=== PATIENT | female | born 1980 | race Two or more races ===

== ENCOUNTER 2020-09-21 22:10 | Emergency (ER) | payer MEDICAID, SELFPAY ==
[2020-09-21 22:13] VITALS: BP 147/94; PULSE 77; RESP 18; TEMP 36.8; O2SAT 100; BMI 39.4
--- NOTE | 2020-09-22 01:56 | PC.NURSE ---
TRAPEZE ARTIST at bedside for primary eval.
--- NOTE | 2020-09-22 01:57 | ED_ITS ---
HPI - Wound/Laceration General Chief Complaint: Skin/Abscess/Foreign Body Stated Complaint: bite Source: patient Mode of arrival: ambulatory Limitations: no limitations History of Present Illness HPI narrative: 40-year-old female presents within insect bite to the left foot. Onset (ago): hour(s) (Within the hour of arrival) Place: home Patient tetanus UTD: No Associated symptoms: pain Related Data Allergies Allergy/AdvReac Type Severity Reaction Status Date / Time No Known Allergies Allergy Unknown UNKNOWN Verified 09/21/20 22:13 [NO KNOWN ALLERGIES] Review of Systems Review of Systems: Constitutional: No Fever, No Chills ENT/Mouth: No Ear Pain, No Hoarseness, No sore throat Eyes: No Eye Pain, No Swelling, No Redness, No Foreign Body Cardiovascular: No Chest Pain, No SOB Respiratory: No Cough, No Dyspnea Gastrointestinal: No Nausea, No Vomiting, No Diarrhea, No abdominal Pain Genitourinary: No Dysuria, No Hematuria Musculoskeletal: positive left foot pain, No Myalgias, No Joint Swelling Skin: No Skin lacerations, No rash Neuro: No Weakness, No Numbness, No Paresthesias, No Loss of Consciousness, No Dizziness, No Headache Psych: No Anxiety/Panic, No Depression Heme/Lymph: no easy bruising, no Lymphadenopathy Endocrine: No Polyuria, No Polydipsia Yes all other systems are reviewed and are negative [facility] Past Medical History Attestation statement: The following information was validated with the patient. Source: old records reviewed Medical History (Updated 09/22/20 @ 01:59 by Alondra Frias NP) Hypertension Social History Social History Advance Directives: No Advance Directives Information Provided: No Patient : No Physical Exam Vital Signs: Vital Signs: Last Vital Signs Temp 98.2 F 09/21/20 22:13 Pulse 75 09/22/20 01:58 Resp 20 09/22/20 01:58 BP 172/84 H 09/22/20 01:58 Pulse Ox 100 09/21/20 22:13 Body Mass Index 39.4 Appearance: Alert. Oriented X3. No acute distress. Eyes: Pupils equal, round and reactive to light. ENT: Pharynx normal. Neck: Normal inspection. Neck supple. CVS: Normal heart rate and rhythm. Pulses normal. Respiratory: No respiratory distress. Breath sounds normal. Abdomen: Soft and nontender. Skin: Skin warm and dry. Normal skin color. Normal skin turgor. Extremities: No lower extremity edema. Neuro: No motor deficit. No sensory deficit. Course Course Course Narrative: 40-year-old female states to have been stung by a bee to the left medial aspect of the foot. Unable to sting site, patient did place a Home remedy paste on it try to remove the stinger which was successful. do not appreciate any swelling or erythema. Will treat with Toradol, update Tdap vaccine, and give Benadryl. Patient would like to be discharged to home at this time. MDM - Wound/Laceration MDM Narrative Medical decision making narrative: Bee sting Discharge Plan Discharge Clinical Impression: Bee sting reaction Qualifiers: Encounter type: initial encounter Injury intent: accidental or unintentional Qualified Code(s): T63.441A - Toxic effect of venom of bees, accidental (unintentional), initial encounter Patient Disposition: Home, Self-Care Instructions: Insect Bite or Sting (ED) Additional Instructions: You evaluated for injuries sustained from a bee sting. We treated you with Benadryl, Toradol, and updated her Tdap vaccine today. Thank you for choosing this emergency department for evaluation. Please follow-up with primary care physician as needed. Return to the emergency department for any new, concerning, or worsening symptoms. Interventions: ED Discharge Assessment Last Done: 09/22/20 02:13 Discharge Date/Time: 09/22/20 02:15
[2020-09-22 01:58] VITALS: BP 172/84; PULSE 75; RESP 20
[2020-09-22] MEDS: Ketorolac Tromethamine 60 MG/2 ML VIAL IM (02:11)
[2020-09-22] MEDS: diphenhydrAMINE HCL 25 MG TABLET 50 MG PO (02:11)
[2020-09-22] MEDS: Diphth,Pertus(ACell),Tet Adult 0.5 ML SYRINGE IM (02:12)
--- NOTE | 2020-09-22 02:12 | PC.NURSE ---
Medicated per JUN. VSS. Pt aware of plan to DC home.
== END 2020-09-22 02:15 | disposition home or self-care (01) ==
PROVIDERS: Emergency Provider Emergency Medicine
DX: T63.441A Toxic effect of venom of bees, accidental (unintentional), initial encounter (principal); Y92.9 Unspecified place or not applicable; I10 Essential (primary) hypertension
CPT/HCPCS: 90471; 90715; 96372; 99284; J1885; Q0163

== ENCOUNTER 2020-09-27 12:58 | Outpatient (REF) | payer MEDICAID, SELFPAY ==
--- NOTE | ~2020-09-27 | XR_ITS ---
EXAMINATION: XR BILATERAL KNEE CLINICAL INFORMATION: Pain. COMPARISON: None. TECHNIQUE: 4 views each knee. FINDINGS: Right Knee: There is loss of medial and patellofemoral compartment joint space. There are no loose bodies or bony erosive changes. No abnormal joint effusion. No visible acute fracture or dislocation. Left Knee: There is minimal loss of medial and patellofemoral compartment joint space. No bony erosive changes. There are no loose bodies. No abnormal joint effusion. The soft tissues are normal. XR/XR knee RT 4V IMPRESSION: Mild early degenerative changes medial and patellofemoral compartment joint spaces. No visible acute fracture or dislocation seen.
--- NOTE | ~2020-09-27 | XR_ITS ---
EXAMINATION: XR BILATERAL KNEE CLINICAL INFORMATION: Pain. COMPARISON: None. TECHNIQUE: 4 views each knee. FINDINGS: Right Knee: There is loss of medial and patellofemoral compartment joint space. There are no loose bodies or bony erosive changes. No abnormal joint effusion. No visible acute fracture or dislocation. Left Knee: There is minimal loss of medial and patellofemoral compartment joint space. No bony erosive changes. There are no loose bodies. No abnormal joint effusion. The soft tissues are normal. XR/XR knee LT 4V IMPRESSION: Mild early degenerative changes medial and patellofemoral compartment joint spaces. No visible acute fracture or dislocation seen.
== END 2020-09-27 12:59 | disposition home or self-care (01) ==
LOC: HO.XRAY 12:58
PROVIDERS: PCP General Practice; Visit Provider General Practice
DX: M25.561 Pain in right knee (principal); M25.562 Pain in left knee
CPT/HCPCS: 73564

== ENCOUNTER 2021-01-28 13:22 | Outpatient (RCR) | payer MEDICAID, SELFPAY | END 2021-02-18 12:05 | disposition home or self-care (01) | LOC: HO.PT 13:22 | PROVIDERS: PCP General Practice; Visit Provider General Practice | DX: M17.0 Bilateral primary osteoarthritis of knee (principal) | CPT/HCPCS: 97162 ==

== ENCOUNTER 2022-10-16 10:11 | Outpatient (REF) | payer MEDICAID, SELFPAY | END 2022-10-16 10:12 | disposition home or self-care (01) | LOC: HO.HHCL 10:11 | PROVIDERS: Visit Provider General Practice | DX: N39.3 Stress incontinence (female) (male) (principal); E88.81 Metabolic syndrome and other insulin resistance | CPT/HCPCS: 36415; 80053; 83036 ==

== ENCOUNTER 2023-08-20 11:06 | Outpatient (REF) | payer MEDICAID, SELFPAY ==
[2023-08-20 13:17] LABS: MANUAL DIFF FLAG NO
[2023-08-20 13:54] LABS: Basophils Percent Auto 0.5 % (0-2); Eosinophils Absolute Auto 0.2 X10*3/uL (0.0-0.4); Eosinophils Percent Auto 2.1 % (0-4); Hemoglobin 12.6 g/dl (12.0-16.0); Imm Gran Abs Auto 0.04 X10*3/uL (0.00-0.03); Imm Gran Pct Auto 0.5 % (0.0-0.4); Lymphocytes Absolute Auto 2.3 X10*3/uL (1.2-4.9); Lymphocytes Percent Auto 28.4 % (20-40); Mean Corpuscular HGB Conc 34.1 g/dl (31.0-35.0); Mean Corpuscular Hemoglobin 29.7 pg (27.0-33.0); Mean Corpuscular Volume 87.3 fL (80.0-98.0); Mean Platelet Volume 10.7 fL (9.4-12.3); Monocytes Absolute Auto 0.5 X10*3/uL (0.1-1.2); Monocytes Percent Auto 5.9 % (2-11); Neutrophils Absolute Auto 5.1 x10*3/uL (2.0-8.3); Neutrophils Percent Auto 62.6 % (45-73); Platelet Count 217 X10*3/uL (160-400); Red Blood Count 4.24 X10*6/uL (4.20-5.50); Red Cell Distribution Width 12.4 % (11.0-16.0); White Blood Count 8.1 X10*3/uL (4.8-10.8)
[2023-08-20 14:12] LABS: Alanine Aminotransferase 26 U/L (0-31); Albumin Level 3.8 g/dL (3.5-5.0); Alkaline Phosphatase 60 U/L (39-117); Anion Gap 14 (12-20); Aspartate Amino Transferase 17 U/L (5-31); Bilirubin Total 0.4 mg/dL (0.0-1.0); Blood Urea Nitrogen 13 mg/dL (9-16); Calcium 8.7 mg/dL (8.4-10.2); Carbon Dioxide 26 mmol/L (22-29); Chloride 105 mmol/L (96-108); Cholesterol 177 mg/dL (<200); Estimated Glomerular Filt Rate > 60; Glucose Random 87 mg/dL (60-115); HDL Cholesterol 47 mg/dL (>40); LDL Cholesterol Calculated 109 mg/dL (<100); Potassium 3.3 mmol/L (3.3-5.1); Sodium 142 mmol/L (135-145); Total Protein 6.5 g/dL (6.5-8.0); Triglycerides 106 mg/dL (<150)
[2023-08-20 14:31] LABS: Folate 8.3 ng/mL (> or = 4.0); Vitamin B12 560 pg/mL (200-900)
[2023-08-20 14:32] LABS: TSH reflex Free T4 1.76 uIU/mL (0.32-4.0)
== END 2023-08-20 11:07 | disposition home or self-care (01) ==
LOC: HO.HHCLNP 11:06
PROVIDERS: Visit Provider General Practice
DX: I10 Essential (primary) hypertension (principal)
CPT/HCPCS: 36415; 80053; 80061; 82607; 82746; 84443; 85025

== ENCOUNTER 2023-10-10 09:24 | Outpatient (AMB) | payer MEDICAID, SELFPAY ==
--- OUTSIDE RECORDS SUMMARY | 2023-10-10 09:25 | XMS_ITS | Continuity of Care Document ---
Author Organization [facility] Address [address] [place] [address]- Care Team Providers Care Supervisor Long Goods Name Role Phone Not on Staff, PCP Primary Care Physician Unavail able Encounter [facility] NBR [id number] Date(s): 03/24/21 - 03/25/[address] [address]- Discharge Disposition: A-D/C Walkout Attending Physician: Lencho Bynum DO Admitting Physician: Lencho Bynum DO Referring Physician: Not on Staff, Referring MD Allergies, Adverse Reactions, Alerts Substance Reaction Severity Status NKA Active Medications Aveeno Anti-Itch 3%-1% topical cream 1 application, Topically, 2 times a day, PRN for itching, # 30 Gm, 0 Refills, Maintenance, 10/05/2012:29:00 EDT, Cream Start Date: 10/06/19 Status: Ordered losartan 25 mg oral tablet 25 mg, 1, tablet, By Mouth, Daily, # 30 tablet, Refills 0, Maintenance, 10/06/19 13:29:00 EDT Start Date: 10/06/19 Status: Ordered Mirena 52 mg intrauterine device 1 each = 52 mg, Once, 0 Refills, Maintenance, 10/06/19 13:29:00 EDT Start Date: 10/06/19 Status: Ordered oxybutynin 10 mg/24 hr oral tablet, extended release 1 tablet = 10 mg, By Mouth, Daily, # 30 tablet, 11 Refills, Maintenance, 05/03/20 16:04:00 EST, ER Tablet, [facility], 156.1, cm, 01/30/20 9:49:00 EDT, Height, 106.3, kg, :49:00 EDT, Dry Weight Start Date: 05/03/20 Status: Ordered Prevident Topically, Daily at bedtime, 0 Refills, Maintenance, 10/06/19 13:30:00 EDT Start Date: 10/06/19 Status: Ordered SUMAtriptan 50 mg oral tablet 1 tablet = 50 mg, By Mouth, Daily, PRN for migraine headache, may repeat dose after 2 hours up to amaximum of 2, # 9 tablet, 0 Refills, Maintenance, 10/06/19 13:30:00 EDT, Tablet Start Date: 10/06/19 Status: Ordered Tylenol 325 mg oral capsule 2 capsule = 650 mg, By Mouth, Every 4 hours, PRN as needed for fever, # 20 capsule, 0 Refills, Maintenance, 10/06/19 13:31:00 EDT, Capsule Start Date: 10/06/19 Status: Ordered Vitamin D3 By Mouth, Daily, 0 Refills, Maintenance, 10/06/19 13:31:00 EDT Start Date: 10/06/19 Status: Ordered Problem List Condition Effective Dates Status Health Status Inform ant Essential hypertension(Confirmed) Active Insulin resistance(Confirmed) Active Migraine(Confirmed) Active Pain of right breast(Confirmed) Active Incontinence of urine(Confirmed) Active Vitamin D deficiency(Confirmed) Active Vital Signs Most recent to oldest [Reference Range]: 1 Height 158 cm (03/24/21 9:03 PM) Weight 110.3 kg (03/24/21 9:03 PM) Oxygen Saturation [94-100 %] 98 % (03/24/21 9:03 PM) Pulse Rate [55-90 bpm] 61 bpm (03/24/21 9:03 PM) Blood Pressure [90-138/55-84 mm Hg] 140/ 61mm Hg *H* (03/24/21 9:03 PM) Respiratory Rate [16-30 br/min] 20 br/mi n (03/24/21 9:03 PM) Temperature [96.8-100.4 DegF] 98.3 DegF (03/24/21 9:03 PM) Mode of Delivery (Oxygen) Room air (03/24/21 9:03 PM) Blood pressure sites Arm, left (03/24/21 9:03 PM) Temperature Route Oral (03/24/21 9:03 PM) Dry Weight 110.3 kg (03/24/21 9:03 PM) Weight Obtained Via Standing scale (03/24/21 9:03 PM) Dry Weight Obtained Via Standing scale (03/24/21 9:03 PM) Social History Social History Type Response Smoking Status Never (less than 100 in lifetime) entered on: 11/26/19 Sex
--- OUTSIDE RECORDS SUMMARY | 2023-10-10 09:25 | XMS_ITS | Continuity of Care Document ---
Author Organization [facility] Reshma de la torreWorldMate[facility] Address [address] [place] [address], 4t [place] [address]- Care Team Providers Care High Density Talc Coater Operator Name Role Phone Diana Alejandra Primary Care Physician En[facility] Date(s): 05/03/20 - 05/10/20 [facility] De Lanceydean RileyWorldMates [facility] [address] [facility], 4th Floor [place], [place] [address] Attending Physician: Not on Staff, Attending MD Referring Physician: Ha PULIDO, Mary Winston Allergies, Adverse Reactions, Alerts Substance Reaction Severity Status NKA Active Medications Alaway 0.025% ophthalmic solution 1 drops, Eyes, Both, Every 8 hours, 0 Refills, Maintenance, 10/06/19 13:28:00 EDT Start Date: 10/06/19 Status: Ordered Aveeno Anti-Itch 3%-1% topical cream 1 application, [...] Refills, Maintenance, 05/03/20 16:04:00 EST, ER Tablet, [facility], 156.1, cm, 01/30/20 9:49:00 EDT, Height, 106.3, kg, 209:49:00 EDT, Dry Weight Start Date: 05/03/20 Status: [...] of urine(Confirmed) Active Vitamin D deficiency(Confirmed) Active Social History Social History Type Response Smoking Status Never (less than 100 in lifetime) entered on: 11/26/19 Sex
--- OUTSIDE RECORDS SUMMARY | 2023-10-10 09:25 | XMS_ITS | Continuity of Care Document ---
Author Organization [facility] Address [address] [place] [address], 4t [place] [address]- Care Team Providers Care Sanipractic Physician Name Role Phone Diana Alejandra Primary Care Physician [id number] Date(s): 04/29/20 - 05/29/20 [facility] Conroedean RileyRevolutionary Medical Devicess [facility] [address] [facility], 4th [address] [place], [place] [address] Attending Physician: Diana Bennett Admitting Physician: Admtr, Ar8 Referring Physician: Admtr, Ar8 Allergies, Adverse Reactions, Alerts Substance Reaction Severity [...] Refills, Maintenance, 05/03/20 16:04:00 EST, ER Tablet, [facility], 156.1, cm, 01/30/20 9:49:00 EDT, [...]
--- OUTSIDE RECORDS SUMMARY | 2023-10-10 09:25 | XMS_ITS | Continuity of Care Document ---
Author Organization [facility] Arminda [facility] Address [address] [facility], [address] [place] [address]- Care Team Providers Care Hospital Administrative Assistant Name Role Phone Diana Alejandra Primary Care Physician [phone] Encounter [facility] Date(s): 06/16/21 - 07/16/21 [facility] Reshmadean RileyDiabetes Care Groups [facility] [address] [facility], 4th Floor [place], [place] [address] Attending Physician: Diana Bennett Admitting Physician: Diana Bennett Referring Physician: AdmtrDiana Allergies, Adverse Reactions, Alerts No Known Allergies Medications Aveeno Anti-Itch 3%-1% topical cream 1 [...] 10 mg/24 hr oral tablet, extended release See Instructions, TAKE 1 TABLET BY MOUTH EVERYDAY AT NOON, # 30 tablet, 11 Refills, [facility], 158, cm, 03/24/21 21:03:00 EST, Height, 110.3, kg, 03/24/21 21:03:00 EST, Dry Weight Start Date: 05/25/21 Status: Ordered oxybutynin 15 mg/24 hr oral tablet, extended release 1 tablet = 15 mg, By Mouth, Daily, # 90 tablet, 3 Refills, Maintenance, 06/16/21 14:05:00 EST, [facility], Partial fill upon patient request if the prescription is for a schedule II opioid drug., 158, cm, 03/24/21 21:03:00 EST, [place]... Start Date: 06/16/21 Status: Ordered Prevident Topically, Daily at bedtime, [...]
--- OUTSIDE RECORDS SUMMARY | 2023-10-10 09:25 | XMS_ITS | Continuity of Care Document ---
Author Organization [facility] Reshma goldstein [facility] Address [address] [facility], 4t [place] [address]- Care Team Providers Care Underground Drill Operator Name Role Phone Kings HOWE, Kati Varghese Primary Care Physician En[facility] Date(s): 10/09/19 - 11/08/19 [facility] Riley[facility] Med[facility] [address] [facility], 4th [place] [address]- [facility] Allergies, Adverse Reactions, Alerts Substance Reaction Severity [...] 13:29:00 EDT Start Date: 10/06/19 Status: Ordered Prevident Topically, Daily at bedtime, [...]
--- OUTSIDE RECORDS SUMMARY | 2023-10-10 09:25 | XMS_ITS | Continuity of Care Document ---
Author Organization [facility] ter Address [address] [place] [address]- Care Team Providers Care Lamp Inspector Name Role Phone Not on Staff, PCP Primary Care Physician Unavail able [facility] [facility] Date(s): 04/08/21 - 04/08/[address] [address]- Encounter Diagnosis COVID-19(Final) - 04/08/21 Discharge Disposition: A-D/C Home Attending Physician: Jadon HOWE, Roberto Henao Admitting Physician: Jadon HOWE, Roberto Henao Referring Physician: Not on Staff, Referring MD [...] Refills, Maintenance, 05/03/20 16:04:00 EST, ER Tablet, [facility], 156.1, cm, 01/30/20 9:49:00 EDT, Height, [...] Most recent to oldest [Reference Range]: 1 Oxygen Saturation [94-100 %] 100 % (04/08/21 9:13 PM) Pulse Rate [55-90 bpm] 75 bpm (04/08/21 9:13 PM) Blood Pressure [90-138/55-84 mm Hg] 142/ 85mm Hg *H* (04/08/21 9:13 PM) Respiratory Rate [16-30 br/min] 20 br/mi n (04/08/21 9:13 PM) Temperature [96.8-100.4 DegF] 98.9 DegF (04/08/21 9:13 PM) Mode of Delivery (Oxygen) Room air (04/08/21 9:13 PM) Blood pressure sites Arm, right (04/08/21 9:13 PM) Temperature Route Oral (04/08/21 9:13 PM) Social History Social History Type Response Smoking Status Never (less than 100 in lifetime) entered on: 11/26/19 Sex
--- OUTSIDE RECORDS SUMMARY | 2023-10-10 09:25 | XMS_ITS | Continuity of Care Document ---
Author Organization [facility] Reshma goldstein [facility] Address [address] [facility], 4t [place] [address]- Care Team Providers Care Cranberry Bog Supervisor Name Role Phone Diana Alejandra Primary Care Physician En[facility] [place] Date(s): 10/21/19 - 12/05/19 [facility] Reshmadean RileyGreen Apple Medias [facility] [address] [facility], 4th [place] [address]- [facility] Attending Physician: Mary Bonner NP Admitting Physician: Ha PULIDO, Mary Winston Referring Physician: Kings HOWE, Kati Varghese Allergies, Adverse Reactions, Alerts Substance Reaction Severity [...] mg, By Mouth, Daily, # 30 tablet, 5 Refills, Maintenance, 11/26/19 14:59:00 EDT, ER Tablet, [facility], 156.1, cm, 11/26/19 14:30:00 EDT, Height, 107.5, kg, 11/25/2013:30:00 EDT, Dry Weight Start Date: 11/26/19 Status: Ordered Prevident Topically, Daily at bedtime, [...]
--- OUTSIDE RECORDS SUMMARY | 2023-10-10 09:25 | XMS_ITS | Continuity of Care Document ---
Author Organization [facility] Reshma goldstein [facility] Address [address] [facility], 4t [place] [address]- Care Team Providers Care Office Clerk Assistant Name Role Phone Kati Ku MD Primary Care Physician Encounter [facility] Date(s): 09/17/19 - 11/08/19 [facility] Reshma RileySagoons [facility] [address] [facility], 4th [place] [address]- [facility] Attending Physician: Paradise Mendoza MD Admitting Physician: Paradise Mendoza MD Referring Physician: Kati Ku MD Allergies, Adverse Reactions, Alerts Substance Reaction [...]
--- OUTSIDE RECORDS SUMMARY | 2023-10-10 09:25 | XMS_ITS | Continuity of Care Document ---
Author Organization [facility] Arminda de la torreRedeem&Gets [facility] Address [address] [place] [address], 4t [place] [address]- Care Team Providers Care Carboy Filler Name Role Phone Diana Alejandra Primary Care Physician [id number] Date(s): 05/03/20 - 06/02/20 [facility] Cripple Creekdean RileyRedeem&Gets [facility] [address] [facility], 4th Floor [place], [place] [address] Attending Physician: Diana Bennett Admitting Physician: Admtr, [...] Refills, Maintenance, 05/03/20 16:04:00 EST, ER Tablet, [facility], 156.1, cm, 01/30/20 9:49:00 EDT, [...]
--- OUTSIDE RECORDS SUMMARY | 2023-10-10 09:25 | XMS_ITS | Continuity of Care Document ---
Author Organization [facility] [place] [facility] nAnonymAsk [facility] Address [address] [place] [address], 4t [place] [address]- Care Team Providers Care Instrument/Control Technician Name Role Phone Diana Alejandra Primary Care Physician [phone] [id number] Date(s): 11/22/22 - 03/22/23 [facility] [employer] [facility] [address] [facility], 4th [address] [place], [place] [address] Attending Physician: Paradise Mendoza MD Admitting Physician: Paradise Mendoza MD Referring Physician: Diana Alejandra Allergies, Adverse Reactions, Alerts No Known Allergies Medications losartan 25 mg oral tablet 25 mg, [...] TABLET BY MOUTH EVERYDAY AT NOON, # 90 tablet, 3 Refills, Maintenance, 03/13/23 9:20:00 EST, [facility], 158, cm, 08/29/22 9:07:00 EDT, Height, 102, kg, 03/13/23 9:14:00 EST, Dry Weight Start Date: 03/13/23 Status: Ordered Prevident Topically, Daily at bedtime, 0 Refills, Maintenance, 10/06/19 13:30:00 EDT Start Date: 10/06/19 Status: Ordered propranolol 80 mg oral tablet 1 tablet = 80 mg, By Mouth, 2 times a day, 0 Refills, Maintenance, 08/29/22 9:11:00 EDT, Partial fill upon patient request if the prescription is for a schedule II opioid drug. Start Date: 08/29/22 Status: Ordered Tylenol 325 mg oral capsule 2 capsule = 650 mg, By Mouth, Every 4 hours, PRN as needed for fever, # 20 capsule, 0 Refills, Maintenance, 10/06/19 13:31:00 EDT, Capsule Start Date: 10/06/19 Status: Ordered Vitamin D3 By Mouth, Daily, 0 Refills, Maintenance, 10/06/19 13:31:00 EDT Start Date: 10/06/19 Status: Ordered Problem List Condition Confirmation Course Effective Dates Status Health St atus Informant Essential hypertension Confirmed Active Insulin resistance Confirmed Active Migraine Confirmed Active Pain of right breast Confirmed Active Severe obesity Confirmed Active Incontinence of urine Confirmed Active Vitamin D deficiency Confirmed Active Social History Social History Type Response Smoking Status Never (less than 100 in lifetime) entered on: 11/26/19 Sex Patient Care team information Care Team Personnel Name: Diana Alejandra Position: S Outreach Member Role: PCP Address: Address: [address] [place] [address]- Care Team Related Persons Name: NAY LEBRON Address: [place] [address] Name: PT STATE, NONE Name: LUZ HEAD Address: home [address] [place] [address]
--- OUTSIDE RECORDS SUMMARY | 2023-10-10 09:25 | XMS_ITS | Continuity of Care Document ---
Author Organization [facility] Reshma goldstein [facility] Address [address] [facility], 4t [place] [address]- Care Team Providers Care Fisher Line Name Role Phone Kati Ku MD Primary Care Physician [place] [facility] [place] Date(s): 10/09/19 - 11/15/19 [facility] Reshma RileyUniversityLyfes [facility] [address] [facility], 4th [place] [address]- [facility] Attending Physician: Paradise Mendoza MD Admitting Physician: [...]
--- OUTSIDE RECORDS SUMMARY | 2023-10-10 09:25 | XMS_ITS | Continuity of Care Document ---
Author Organization [facility] ter Address [address] [place] [address]- Care Team Providers Care Steam Fitter Helper Name Role Phone Kati Ku MD Primary Care Physician Encounter [facility] Date(s): 04/14/19 - 04/15/[address] [address]- [facility] Encounter Diagnosis Strain of chest wall(Final) - 04/14/19 Hypokalemia(Final) - 04/14/19 Discharge Disposition: A-D/C Home Attending Physician: Sarah Mckeon MD Admitting Physician: Sarah Mckeon MD Referring Physician: Not on Staff, Referring MD Allergies, Adverse Reactions, Alerts Substance Reaction Severity Status NKA Active Results Radiology Reports * Exam Date Time Procedure Performing Provider Status 04/14/19 11:10 PM Chest 2 Views Frontal and Lat Dianelys Mendoza (Verified) Notes: (Chest 2 Views Frontal and Lat) Reason For Exam: Shortness of Breath RESULT: Chest 2 Views Frontal and Lat Chest 2 Views Frontal and Lat Indication: Left chest discomfort. COMPARISON: None. FINDINGS: LINES AND TUBES: None. LUNGS AND PLEURA: Clear lungs. Normal pulmonary vascularity. No pleural effusion. No pneumothorax. HEART, MEDIASTINUM AND BJORN: Mild prominence of the cardiac silhouette. Otherwise unremarkable. BONES AND SOFT TISSUES: No acute abnormality. IMPRESSION: No radiographic explanation for patient's symptoms identified. WSN: [id number] Dictated By: Rayray Clayton MD Dictated Date/Time: 04/14/19 11:13 p Reviewed By: Rayray Clayton MD Signed By: Rayray Clayton MD Signed Date/Time: 04/14/19 11:13 pm Transcribed By: CSB Transcribed Date/Time: 04/14/19 11:12 pm Vital Signs Most recent to oldest [Reference Range]: 1 2 3 Oxygen Saturation [94-100 %] 100 % (04/15/19 12:26 AM) 98 % (04/14/19 9:41 PM) 100 % (04/14/19 9:29 PM) Pulse Rate [55-90 bpm] 72 bpm (04/15/19 12:26 AM) 82 bpm (04/14/19 9:41 PM) 88 bpm (04/14/19 9:29 PM) Blood Pressure [90-138/55-84 mm Hg] 143/75mm Hg *H* (04/15/19 12:26 AM) 142/81mm Hg *H* (04/14/19 9:41 PM) Respiratory Rate [16-30 br/min] 18 br/min (04/15/19 12:26 AM) 18 br/min (04/14/19 9:41 PM) Temperature [96.8-100.4 DegF] 98.2 DegF (04/14/19 9:41 PM) Mode of Delivery (Oxygen) Room air (04/15/19 12:26 AM) Room air (04/14/19 9:41 PM) Room air (04/14/19 9:29 PM) Blood pressure sites Arm, left (04/15/19 12:26 AM) Arm, right (04/14/19 9:41 PM) Temperature Route Oral (04/14/19 9:41 PM)
--- OUTSIDE RECORDS SUMMARY | 2023-10-10 09:25 | XMS_ITS | Continuity of Care Document ---
Author Organization [facility] Reshma goldstein [facility] Address [address] [facility], 4t [place] [address]- Care Team Providers Care Math Interventionist Name Role Phone Kati Ku MD Primary Care Physician Encounter [facility] [place] Date(s): 10/09/19 - 11/13/19 [facility] Reshma RileyGroom Energy Solutionss [facility] [address] [facility], 4th [place] [address]- [facility] Attending Physician: Paradise Mendoza MD [...]
--- OUTSIDE RECORDS SUMMARY | 2023-10-10 09:25 | XMS_ITS | Continuity of Care Document ---
Author Organization [facility] Arminda nNumascales [facility] Address [address] [place] [address], [address] [place] [address]- Care Team Providers Care Tree Killer Name Role Phone Diana Alejandra Primary Care Physician [phone] [facility]counter [facility] [id number] Date(s): 03/13/23 - 04/12/23 [facility] [address], [address] [place], [place] [address] Attending Physician: Diana Bennett Admitting Physician: [...] tablet, 3 Refills, Maintenance, 03/13/23 9:20:00 EST, [facility], 158, cm, 08/29/22 9:07:00 EDT, [...] Care Team Personnel Name: Diana Alejandra Position: [facility] Outreach Member Role: PCP Address: Address: [address] [place] [address]- Care Team Related Persons Name: NAY LEBRON Address: [place] [address] Name: PT STATE, NONE Name: LUZ HEAD Address: home [address] [place] [address]
--- NOTE | 2023-10-10 09:41 | MHC.OFFVIS ---
Vital Signs 10/10/23 09:42 Height 5 ft 4 in Weight 230 lb BMI 39.5 BP 178/82 H Position Sitting Pulse 54 Pulse Source Pulse Oximeter Pulse Oximetry (%) 96 Oxygen Delivery Method Room Air Intake Visit Reasons: colonoscopy screening Intake Note: New patient in office today for colonoscopy screening. CC: Patient reports that since after cholecystectomy she gets sometimes diarrhea and other times constipation. Patient also report occasional abdominal cramps. She states that she chokes sometimes when taking pills, and sometimes with her saliva. Deck Hand Required: Yes Accompanied by: Self / Same As Patient Allergies No Known Allergies [NO KNOWN ALLERGIES] Allergy (Unknown, Verified 10/10/23 09:45) UNKNOWN HPI HPI colonoscopy screening: Details: 43 year old? female here today for pre colonoscopy screening.? Patient was sent to us by her PCP.? This is her first colonoscopy screening.? Patient reports loose stools postprandially then constipation. Patient reports that her symptoms started after her cholecystectomy in 2011. Patient is avoiding greasy food. Certain things like even banana most send her to the bathroom with loose stools. Patient denies any melena, hematochezia, unintentional weight loss or ribbon like stools. Patient denies any dyspepsia, dysphagia or odynophagia. Denies any personal or family history of gastrointestinal disease, colon polyps, or CRC.? Denies history of difficulty with sedation or anesthesia in the past.? No official diagnosis of sleep apnea, however patient reports that she was told by her that he has to wake her up during the night because he thinks she is not breathing. Patient was encouraged to call her PCP for sleep apnea study.? Denies any history of cardiac, renal, pulmonary, or hepatic disease.?? No history of infectious? diseases like hepatitis A, B, C, HIV or tuberculosis.? Patient is not on any anticoagulation [facility] Medical History Chronic migraine without aura without status migrainosus, not intractable Stress incontinence Hypertension Surgical History History of cholecystectomy H/O section Social History Alcohol intake: never Patient Tobacco Use Status: Never used Tobacco Review of Systems Const Denies weight gain and Denies weight loss ENT Reports no additional complaints, Denies dysphagia and Denies odynophagia Card Reports no additional complaints Resp Reports no additional complaints GI Denies abdominal pain, Denies belching, Denies melena, Reports bloating, Reports constipation, Denies dysphagia, Denies excessive flatus, Denies dyspepsia, Denies heartburn, Denies diarrhea, Reports loose stools, Denies nausea, Denies odynophagia and Denies vomiting Reports no additional complaints Musc Reports no additional complaints Neuro Reports no additional complaints Psych Reports no additional complaints Endo Reports no additional complaints Physical Exam Vital Signs: BMI result Body Mass Index 39.5 Const General: healthy appearing and no acute distress Nutritional Appearance: obese Orientation/consciousness: patient oriented x3 Resp Effort & Inspection: normal respiratory effort, able to speak in complete sentences, no tracheal deviation and symmetric chest movement Auscultation: clear to auscultation bilaterally Cardio Rate: regular rate GI Inspection: Yes obesity Palpation (GI): Soft to palpation, not firm, nontender and No hepatosplenomegaly present Auscultation: normal bowel sounds General: Yes no CVA tenderness Back/Spine/Pelvis Back: no CVA tenderness Skin General skin exam: elasticity normal, turgor normal and dry skin Neuro General: patient oriented x3 Psych Appearance: grossly normal Mental Status: mental status grossly normal Assessment & Plan Assessment & Plan (1) Screen for colon cancer: Code(s): Z12.11 - Encounter for screening for malignant neoplasm of colon (2) Postprandial diarrhea: Code(s): K52.9 - Noninfective gastroenteritis and colitis, unspecified (3) Chronic idiopathic constipation: Code(s): K59.04 - Chronic idiopathic constipation Plan Patient denies any cardiac or respiratory symptoms.? Denies any issues with anesthesia in the past.? Denies any history of sleep apnea, however was told by her that he noticed she stops breathing while sleeping. Patient was encouraged to call PCP for sleep apnea study? No history infectious diseases in the past or present.? Not on any anticoagulation therapy.? No family or personal history of colon cancer or polyps.? Patient denies melena, hematochezia, unintentional weight loss or ribbon like stools.? Discussed at length the pre-procedure,? prep, diet & medications as well as what to expect prior, during and after the procedure.?? Stressed the importance of good bowel prep.? Recommended the use of Vaseline or Calmoseptine OTC & baby wipes with bowel movements to promote comfort.? Patient reports postprandial loose stools depending on what she eats. Occasional constipation. Will send script for Citrucel and senna. Patient will return in 2 months to re-evaluate before she goes for colonoscopy. Patient is agreeable to this plan and verbalizes understanding of instructions. She was given the opportunity to ask questions and all questions answered. Thank you for allowing me to participate in her care Medications: New bisacodyl (Dulcolax (bisacodyl)) take 4 tabs at noon the day before your colonoscopy 20 mg (4 x 5 mg) PO ONCE 1 day 4 tabs 0RF Z12.11 - Encounter for screening for malignant neoplasm of colon polyethylene glycol 3350 (Miralax) As directed by gastroenterology department at [facility] 238 grams PO ONCE 238 grams 0RF Z12.11 - Encounter for screening for malignant neoplasm of colon methylcellulose (laxative) (Citrucel) take it with full glass of water 500 mg PO DAILY 30 tabs 2RF K59.00 - Constipation, unspecified sennosides (Natural Senna Laxative) 17.2 mg (2 x 8.6 mg) PO BEDTIME 60 tabs 3RF constipation K59.00 - Constipation, unspecified Coding Level of Care Code New Pt Level 3 (73161) Diagnoses Screen for colon cancer Z12.11 Postprandial diarrhea K52.9 Chronic idiopathic constipation K59.04 Time Spent (min) 40 Comment 30 minutes spent with patient and additional 10 minutes spent reviewing her records
[2023-10-10 09:42] VITALS: BP 178/82; PULSE 54; O2SAT 96; BMI 39.5
== END 2023-10-10 10:44 | disposition home or self-care (01) ==
PROVIDERS: PCP General Practice; Visit Provider Nurse Practitioner Family
DX: Z12.11 Encounter for screening for malignant neoplasm of colon (principal); K52.9 Noninfective gastroenteritis and colitis, unspecified; K59.04 Chronic idiopathic constipation; Z01.818 Encounter for other preprocedural examination
CPT/HCPCS: 99203

== ENCOUNTER → 2023-10-10 09:24 | Outpatient (BNVA) | payer MEDICAID, SELFPAY | PROVIDERS: PCP General Practice; Visit Provider Nurse Practitioner | DX: Z01.818 Encounter for other preprocedural examination (principal); K52.9 Noninfective gastroenteritis and colitis, unspecified; K59.04 Chronic idiopathic constipation | CPT/HCPCS: 99212 ==

== ENCOUNTER 2024-01-22 12:10 | Outpatient (REF) | payer MEDICAID, SELFPAY ==
[2024-01-22 13:34] LABS: Hematocrit 36.5 % (37.0-47.0); Hemoglobin 12.7 g/dl (12.0-16.0); Mean Corpuscular HGB Conc 34.8 g/dl (31.0-35.0); Mean Corpuscular Hemoglobin 29.8 pg (27.0-33.0); Mean Corpuscular Volume 85.7 fL (80.0-98.0); Mean Platelet Volume 10.7 fL (9.4-12.3); Platelet Count 237 X10*3/uL (160-400); Red Blood Count 4.26 X10*6/uL (4.20-5.50); Red Cell Distribution Width 12.5 % (11.0-16.0); White Blood Count 10.2 X10*3/uL (4.8-10.8)
[2024-01-22 14:00] LABS: Estimated Average Glucose 105 mg/dL; Hemoglobin A1C 111.1702 umol/L; Hemoglobin A1c % 5.3 % (<6.0); Total Hemoglobin (HGBA1C) 3249.0584 umol/L
[2024-01-22 14:31] LABS: Alanine Aminotransferase 28 U/L (0-31); Albumin Level 3.9 g/dL (3.5-5.0); Alkaline Phosphatase 57 U/L (39-117); Anion Gap 9 (12-20); Aspartate Amino Transferase 16 U/L (5-31); Bilirubin Direct 0.2 mg/dL (0.0-0.5); Bilirubin Total 0.6 mg/dL (0.0-1.0); Blood Urea Nitrogen 7 mg/dL (9-16); Calcium 8.7 mg/dL (8.4-10.2); Carbon Dioxide 25 mmol/L (22-29); Chloride 110 mmol/L (96-108); Estimated Glomerular Filt Rate > 60; Glucose Random 84 mg/dL (60-115); Iron 109 mcg/dL (30-160); Percent Iron Saturation 44 % (15-50); Potassium 3.2 mmol/L (3.3-5.1); Sodium 141 mmol/L (135-145); Total Iron Binding Capacity 247 mcg/dL (228-428); Total Protein 6.4 g/dL (6.5-8.0); Unsaturated Iron Binding 138 ug/dL
[2024-01-22 14:32] LABS: Ferritin 181 ng/mL (10-250); Free T4 (Free Thyroxine) 1.02 ng/dL (0.71-1.85); Thyroid Stimulating Hormone 1.77 uIU/mL (0.32-4.0); Vitamin D 25-OH Total 27.4 ng/mL (>30)
== END 2024-01-22 12:11 | disposition home or self-care (01) ==
LOC: HO.HHCL 12:10
PROVIDERS: Visit Provider Family Medicine
DX: G47.00 Insomnia, unspecified (principal); G47.30 Sleep apnea, unspecified; R53.83 Other fatigue
CPT/HCPCS: 36415; 80048; 80076; 82306; 82728; 83036; 83540; 84439; 84443; 85027

== ENCOUNTER → 2024-01-31 20:30 | Outpatient (REF) | payer MEDICAID, SELFPAY | LOC: HO.SL 20:30 | PROVIDERS: PCP General Practice; Visit Provider Family Medicine | DX: Z13.89 Encounter for screening for other disorder (principal) ==

== ENCOUNTER 2024-02-18 14:26 | Outpatient (REF) | payer MEDICAID, SELFPAY ==
[2024-02-18 16:45] LABS: Potassium 3.1 mmol/L (3.3-5.1)
== END 2024-02-18 14:27 | disposition home or self-care (01) ==
LOC: HO.HHCL 14:26
PROVIDERS: Visit Provider Family Medicine
DX: E87.6 Hypokalemia (principal)
CPT/HCPCS: 36415; 84132

== ENCOUNTER 2024-02-19 08:17 | Outpatient (REF) | payer MEDICAID, SELFPAY ==
--- NOTE | 2024-02-19 08:22 | EMG_ITS ---
Bilateral tibial and peroneal motor studies were performed. Bilateral superficial peroneal and sural sensory studies were performed. Tibial H reflexes were obtained and paraspinal muscles were tested with a needle. 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 MD ESTEPHANIA Razo/LIZ / [id number]
== END 2024-02-19 08:18 | disposition home or self-care (01) ==
LOC: HO.NEURO 08:17
PROVIDERS: Visit Provider Family Medicine
DX: R20.2 Paresthesia of skin (principal)
CPT/HCPCS: 95886; 95911

== ENCOUNTER 2024-02-21 07:23 | Outpatient (REF) | payer MEDICAID, SELFPAY ==
--- NOTE | ~2024-02-21 | MR_ITS ---
EXAMINATION: MR BRAIN WITHOUT CONTRAST CLINICAL INFORMATION: Worsening headaches. COMPARISON: CT head from 05/30/2016. TECHNIQUE: MRI of the brain was obtained using routine sequences without contrast. FINDINGS: No focal restricted diffusion is demonstrated to suggest acute or subacute cerebral ischemia. No evidence of acute or chronic hemorrhagic products on heme-sensitive imaging. Normal parenchymal signal characteristics. The ventricles are normal in morphology and size. No abnormal mass effect. No midline shift. Normal appearance of the pituitary gland. The suprasellar cistern remains widely patent. Normal positioning of the cerebellar tonsils. Normal arterial and venous vascular flow voids are present. Normal, homogeneous marrow signal. Mild mucosal thickening of the paranasal sinuses. No signal abnormalities within the mastoids. MR/MR head/brain wo con IMPRESSION: 1. No acute intracranial abnormalities. 2. No MRI abnormalities to explain the patient's symptoms. Electronically signed by: Qasim Rich DO 03/19/2024 06:43 AM TAINA
== END 2024-02-21 07:24 | disposition home or self-care (01) ==
LOC: HO.MRI 07:23
PROVIDERS: PCP General Practice; Visit Provider Family Medicine
DX: R51.9 Headache, unspecified (principal); G89.29 Other chronic pain
CPT/HCPCS: 70551

== ENCOUNTER → 2024-02-26 07:59 | Outpatient (REF) | payer MEDICAID, SELFPAY ==
--- NOTE | 2024-02-26 08:02 | CA_ITS ---
Transthoracic Echocardiogram Patient (Last, First, Middle): Angelica Downs Arely Gender: Female Date of : 1980 Age: 43 Procedure Date: 02/26/2024 Procedure Type: Transthoracic Echocardiogram Location: OP Height: 162. cm Weight: 102.06 kg BSA: 2.05 m2 Heart Rate: 50 bpm BP: 125 / 75 mmHg Bag Printer: PARAS Venegas MD: Donna Quezada DO Pediatrician Active Practice: Brian Evans MD Symptoms: FATIGUE SWELLING R53.83 Study Quality: Adequate ECG Rhythm: Bradycardia Conclusions: - Essentially normal study Findings Left Ventricle Normal left ventricular size, thickness, and systolic function. The visually estimated ejection fraction is between 55-60%. Spectral Doppler is indicative of a normal filling pattern. Right Ventricle Normal right ventricular cavity size and systolic function. Atria Both atria are normal in size. Interatrial shunt cannot be excluded. Aortic Valve Normal aortic valve structure and function. There is no aortic valve stenosis. There is no aortic valve regurgitation. Mitral Valve Normal mitral valve structure and function. There is trace mitral valve regurgitation. There is no mitral valve stenosis. Pulmonic Valve The pulmonic valve is likely normal. Tricuspid Valve Normal tricuspid valve structure. There is trace tricuspid valve regurgitation. The right ventricular systolic pressure is normal. The right ventricular systolic pressure is 24 mmHg. Normal right atrial pressure. There is no evidence of pulmonary hypertension. Great Vessels All visible segments of the aorta are normal in size. The pulmonary artery was not well visualized. Venous The inferior vena cava is normal in size and collapses greater than 50% with inspiration. Pericardium/Pleural There is no evidence of pericardial effusion. Prior Study Comparison No prior study available for comparison. Measurements 2D Linear Measurements IVSd: 1.17 0.6-0.9/0.6-1.0 cm LVIDd: 5.09 3.9-5.3/4.2-5.9 cm LVIDd Index: 2.48 2.4-3.2/2.2-3.1 cm/m2 LVIDs: 3.24 2.0-3.6 cm LVPWd: 1.22 0.7-1.1 cm LA Diam: 4.40 2.7-3.8/3.0-4.0 cm LAIDs Index: 2.15 1.5-2.3 cm/m2 LV Mass: 298.10 67-162/88-224 g LV Mass Index: 145.42 43-95/49-115 g/m2 LVOT Diam: 2.30 3.0+(-)1.3 cm 2D Systolic Function EF 4C: 53.40 >55% EF 2C: 54.50 >55% EF BiP: 54.90 >55% Mitral Valve MV Pk E: 0.86 MV PK A: 0.90 MV Decel Time: 212.00 E/A: 1.00 E'Lateral: 7.62 E'Medial: 6.09 E/E' Med: 14.10 E/E' Lat: 11.30 PHT: 62.00 MVA PHT: 3.55 Decel [place]: 4.06 Aortic Valve AoV Pk Tariq: 1.55 AoV Mn Tariq: 1.12 AoV VTI: 0.41 AoV Pk Grad: 10.00 Aov Mn Grad: 6.00 JAQUI Cont.VTI: 2.73 LVOT LVOT Pk Tariq: 1.10 LVOT Mn Tariq: 0.79 LVOT VTI: 0.27 LVOT Pk Grad: 5.00 LVOT Mn Grad: 3.00 LVOT Diam: 2.30 LVOT Area: 4.15 Diastolic Function MV Pk E: 0.86 MV Pk A: 0.90 E/A: 1.00 E'Medial: 6.09 E/E' Med: 14.10 E' Laterial: 7.62 E/E' Lat: 11.30 Right Ventricle TAPSE (mm): 29.50 TVS' Tariq: 14.80 Tricuspid Valve TR Pk Tariq: 1.41 TR Pk Grad: 9.00 RA Press: 15.00 RVSP: 24.00 Great Vessels Aorta Sinus of Valsalva: 3.00 2.0-3.5 cm Ao Asc: 3.40 2.1-3.4 cm Pulmonary Valve PV Pk Tariq: 0.92 Peak PV Grad: 3.00 Updated in Other Vendor System with Status of Final Brian Evans MD electronically signed on 02/27/2024 4:58:29 PM with status of Final
== END ==
LOC: HO.CARD 07:59
PROVIDERS: PCP General Practice; Visit Provider Family Medicine
DX: R53.83 Other fatigue (principal)
CPT/HCPCS: 93306

== ENCOUNTER → 2024-02-26 08:02 | Outpatient (BNV) | payer MEDICAID, SELFPAY | PROVIDERS: PCP General Practice; Visit Provider Internal Medicine Cardiovascular Disease | DX: I36.1 Nonrheumatic tricuspid (valve) insufficiency (principal); R53.83 Other fatigue | CPT/HCPCS: 93306 ==

== ENCOUNTER 2024-03-11 10:20 | Outpatient (REF) | payer MEDICAID, SELFPAY ==
[2024-03-12 17:43] LABS: Follicle Stimulating Hormone 3.1 mIU/mL; Lutenizing Hormone 1.3 mIU/mL
== END 2024-03-11 10:21 | disposition home or self-care (01) ==
LOC: HO.HHCL 10:20
PROVIDERS: Visit Provider Family Medicine
DX: R53.83 Other fatigue (principal)
CPT/HCPCS: 36415; 83001; 83002

== ENCOUNTER 2024-03-25 15:06 | Outpatient (REF) | payer MEDICAID, SELFPAY | END 2024-03-25 15:07 | disposition home or self-care (01) | LOC: HO.HHCL 15:06 | PROVIDERS: Visit Provider General Practice | DX: E87.6 Hypokalemia (principal) | CPT/HCPCS: 36415; 84132 ==

== ENCOUNTER 2024-03-28 10:41 | Outpatient (REF) | payer MEDICAID, SELFPAY ==
[2024-03-28 12:00] LABS: Magnesium 1.9 mg/dL (1.6-2.6); Potassium 3.5 mmol/L (3.3-5.1)
== END 2024-03-28 10:42 | disposition home or self-care (01) ==
LOC: HO.HHCL 10:41
PROVIDERS: Visit Provider Pediatrics
DX: E87.6 Hypokalemia (principal)
CPT/HCPCS: 36415; 83735; 84132

== ENCOUNTER 2024-04-07 07:55 | Day surgery (SDC) | payer MEDICAID, SELFPAY ==
[2024-04-03 09:02] VITALS: BMI 39.5
[2024-04-07 08:36] VITALS: BMI 39.1
--- NOTE | 2024-04-07 08:40 | P.HPSUR_ITS ---
Pre-Procedural Eval Section A - 24 Hr Update-Section A only Date of Service: 04/07/24 The patient is an INPATIENT: No The patient has been examined within 24 hours of the surgical procedure. The History & Physical has been completed within 30 days and I have reviewed it.: No Section B - Complete if H&P > 30 days Chief Complaint: Colon cancer screening Relevant Family History (Specify if Yes): No Relevant Social History: None Present Medications: see Short Stay Collaborative assessment Medical History: Significant History (Chronic migraine without aura without status migrainosus, not intractable Stress incontinence Hypertension) History of Previous Operations: Relevant previous surgery/procedure and date(s) (History of cholecystectomy H/O section) Allergies: Allergies Allergy/AdvReac Type Severity Reaction Status Date / Time bee pollen [bee stings] Allergy Unknown Unknown Verified 04/07/24 08:31 Review of Systems Sugical H&P ROS: Negative: Constitution, Cardiovascular, Respiratory and Gastr ointestinal Exam Surgical H&P Exam: Normal: Heart, Normal: Lungs, Normal: Extremities and Normal: Abdomen Plan Diagnosis/Plan: Unchanged I have reviewed the history and physical and performed a pertinent physical examination on my patient. No changes have occurred unless specified. Time Spent With Patient Time: Total time managing care of this patient today ____ minutes.
[2024-04-07 08:46] VITALS: BP 143/81; PULSE 64; RESP 15; TEMP 36.5; O2SAT 98
[2024-04-07 08:46] LABS: UPreg QC Valid YES; Urine Pregnancy NEGATIVE (NEGATIVE)
[2024-04-07] MEDS: Lactated Ringers 1,000 ML 50 ML IVCONT (09:06)
--- NOTE | 2024-04-07 10:04 | HO.ANESPROP2 ---
HPI - Anesthesia Eval Consult details Narrative: 43 yo female patient for Colonoscopy PMFSH Active Problems Active Problems: All Active Problems (Updated 04/07/24 @ 09:58 by Holly Gillis MD) Morbid obesity with BMI of 39.1 Denies CRISTINE Past Medical History Medical History Chronic migraine without aura without status migrainosus, not intractable Stress incontinence Hypertension Family History Family history of problems with anesthesia: No Surgical History Surgical History History of cholecystectomy H/O section History of Problems with Anesthesia: No Social History Social History Alcohol intake: never Patient Tobacco Use Status: Never used Tobacco Use of substances other than those prescribed or required for medical reasons: No Are you DNR?: No Advance Directives: No Advance Directives Information Provided: Yes Meds Allergies Allergy/AdvReac Type Severity Reaction Status Date / Time bee pollen [bee stings] Allergy Unknown Unknown Verified 04/07/24 08:31 Active Medications: Current Medications Lactated Ringer's (Lr) 1,000 mls @ 50 mls/hr IVCONT .Q20H QUINN Last Admin: 04/07/24 09:06 Dose: 50 mls/hr Home Medications ?Medication ?Instructions ?Recorded ?Confirmed ?Last Taken ?Type cholecalciferol (vitamin D3) 50 50 mcg PO QAM 07/03/22 04/07/24 Unknown History mcg (2,000 unit) capsule (Vitamin D3) losartan 50 mg tablet 50 mg PO DAILY 10/10/23 04/07/24 Unknown History magnesium oxide 400 mg (241.3 mg 400 mg PO QAM 10/10/23 04/07/24 Unknown History magnesium) tablet oxybutynin chloride 10 mg 10 mg PO DAILY 10/10/23 04/07/24 Unknown History tablet,extended release 24 hr propranolol 80 mg tablet 80 mg PO ONCE 10/10/23 04/07/24 Unknown History topiramate 50 mg tablet 50 mg PO BEDTIME 10/10/23 04/07/24 Unknown History Exam Height,Weight and Vital Signs: Height 5 ft 4 in Weight 103.419 kg Last Vital Signs Temp 97.7 F 04/07/24 08:46 Pulse 64 12/30/24 08:46 Resp 15 04/07/24 08:46 BP 143/81 H 04/07/24 08:46 Pulse Ox 98 04/07/24 08:46 O2 Del Method Room Air 04/07/24 08:46 Pertinent Lab Results Pertinent Lab Results: Laboratory Tests 04/07/24 08:35 Urine Test NEGATIVE Airway Mallampati Class: II TM Dist: >3cm Neck ROM: Full Loose/Missing/Broken Teeth: No Heart: RRR Lungs: CTAB Assessment and Plan Assessment Anesthesia Assessment: Anesthesia Plan Discussed and Chart Reviewed Final Anesthetic Review Family History of Problems with Anesthesia: No History of Problems with Anesthesia: No NPO: Yes ASA Class: III Final Preanesthetic Review: No Changes in Pt Med Stat, Meds/Allgs Chart Reviewed, Consent Obtained/Reviewed and Anes Risks/Benef Reviewed Patient Risk: Intermediate Procedure Risk: Low Assessment/Block/Sedation in SS: Assess/Block/Sedation-SS Anesthetic Plan Anesthetic Plan: TIVA Disposition: Standard PACU
--- NOTE | 2024-04-07 10:43 | P.OPN-COLO_ITS ---
Colonoscopy Operative Note Operative Note Date of Service: 04/07/24 Narrative: COLONOSCOPY TILL CECUM WITH BIOPSIES Pre-op diagnosis: Colon cancer screening (First colon), postprandial diarrhea. Post-op diagnosis:? Colon polyp, Diverticulosis, hemorrhoids Endoscopist:? Luiz Darling MD Anesthesia:?MAC Consent: Indications for the procedure and potential complications of bleeding, perforation, reaction to medications and missed diagnosis were discussed with the patient and informed consent was obtained. Instrument: Olympus PCF H 190 L variable stiffness pediatric colonoscope Monitoring: Vital signs and clinical assessment, intermittent blood pressure monitoring, continuous EKG monitoring, Pulse oximetry and Carbon Dioxide monitoring were done throughout the procedure. Please see anesthesia flowsheet. Colon withdrawl time was 18 minutes. Procedure: The patient was placed in the left lateral decubitis position and pre-procedure medications were administered. After a digital rectal examination of the ano-rectum, the video colonoscope was inserted into the rectum and advanced through the colon to the cecum. The colonoscope was slowly withdrawn in a retrograde panoramic fashion and the colon mucosa was carefully examined including a retroflexed view of the rectum. Findings and interventions are described below. Procedure Difficulty: without difficulty Findings: Terminal Ileum: Not evaluated Cecum: Normal Ascending Colon: Normal Transverse Colon: Normal Descending Colon: Normal Sigmoid Colon: Moderate diverticulosis Rectum: A 3-4 mm diminutive appearing polyp seen on retroflexed exam - removed with a cold biopsy. Ano-rectum: Moderate internal hemorrhoids Colon preparation: Excellent, after some irrigation. [place] Bowel Preparation Scale Right colon; 3 Transverse colon: 3 Left colon; 3 (0 = Unprepared colon segment with mucosa not seen due to solid stool that cannot be cleared. 1 = Portion of mucosa of the colon segment seen, but other areas of the colon segment not well seen due to staining, residual stool and/or opaque liquid. 2 = Minor amount of residual staining, small fragments of stool and/or opaque liquid, but mucosa of colon segment seen well. 3 = Entire mucosa of colon segment seen well with no residual staining, small fragments of stool or opaque liquid) Impression and Post Procedure Diagnosis: Colonoscopy Findings: One small polyp was removed Random biopsies were obtained from right and left colon to check for microscopic colitis. Moderate diverticulosis seen in the sigmoid colon Moderate hemorrhoids on retroflexed exam. Plan: Pt has a FU appointment on 04/22/23 with Corinna Ron, [facility] Repeat Colonoscopy in 5 years if polyps are adenomatous and 10 year if polyps are hyperplastic. Above findings were reviewed with the patient and relevant handouts were given and the discharge area.
[2024-04-07 10:47] VITALS: BP 128/79; PULSE 74; RESP 22; TEMP 36.9; O2SAT 99
[2024-04-07 11:02] VITALS: BP 136/80; PULSE 64; RESP 16; TEMP 36.9; O2SAT 100
== END 2024-04-07 11:19 | disposition home or self-care (01) ==
PROVIDERS: Anesthesiology; PCP General Practice; Visit Provider Internal Medicine Gastroenterology
PROC: 0DJD8ZZ Inspection of Lower Intestinal Tract, Via Natural or Artificial Opening Endoscopic (ICD-10-PCS; CPT 45378; principal; 2024-04-07 09:30)
DX: Z12.11 Encounter for screening for malignant neoplasm of colon (principal); K62.1 Rectal polyp; K57.30 Diverticulosis of large intestine without perforation or abscess without bleeding; K64.8 Other hemorrhoids; K52.9 Noninfective gastroenteritis and colitis, unspecified; K59.04 Chronic idiopathic constipation; I10 Essential (primary) hypertension; N39.3 Stress incontinence (female) (male); G43.709 Chronic migraine without aura, not intractable, without status migrainosus; Z79.899 Other long term (current) drug therapy; Z90.49 Acquired absence of other specified parts of digestive tract
CPT/HCPCS: 45380; 81025; 88305; J2003; J2704

== ENCOUNTER → 2024-04-07 07:55 | Outpatient (BNV) | payer MEDICAID, SELFPAY | PROVIDERS: PCP General Practice; Visit Provider Internal Medicine Gastroenterology | DX: Z12.11 Encounter for screening for malignant neoplasm of colon (principal); R19.7 Diarrhea, unspecified; K62.1 Rectal polyp; K57.30 Diverticulosis of large intestine without perforation or abscess without bleeding | CPT/HCPCS: 45380 ==

== ENCOUNTER 2024-04-11 09:00 | Outpatient (REF) | payer MEDICAID, SELFPAY ==
[2024-04-11 11:15] LABS: Hematocrit 37.9 % (37.0-47.0); Hemoglobin 12.9 g/dl (12.0-16.0); Mean Corpuscular Hemoglobin 29.3 pg (27.0-33.0); Mean Corpuscular Volume 85.9 fL (80.0-98.0); Mean Platelet Volume 10.8 fL (9.4-12.3); Platelet Count 236 X10*3/uL (160-400); Red Blood Count 4.41 X10*6/uL (4.20-5.50); Red Cell Distribution Width 12.5 % (11.0-16.0); White Blood Count 8.5 X10*3/uL (4.8-10.8)
[2024-04-11 11:52] LABS: Erythrocyte Sedimentation Rate 9 MM/HR (0-20)
[2024-04-11 11:56] LABS: Estimated Average Glucose 105 mg/dL; Hemoglobin A1C 118.5499 umol/L; Hemoglobin A1c % 5.3 % (<6.0); Total Hemoglobin (HGBA1C) 3399.9014 umol/L
[2024-04-11 12:05] LABS: Alanine Aminotransferase 26 U/L (0-31); Albumin Level 3.8 g/dL (3.5-5.0); Alkaline Phosphatase 62 U/L (39-117); Anion Gap 8 (12-20); Aspartate Amino Transferase 21 U/L (5-31); Bilirubin Direct 0.1 mg/dL (0.0-0.5); Bilirubin Total 0.5 mg/dL (0.0-1.0); Blood Urea Nitrogen 9 mg/dL (9-16); C Reactive Protein 0.45 mg/dL (< or = 0.50); Calcium 8.3 mg/dL (8.4-10.2); Carbon Dioxide 24 mmol/L (22-29); Chloride 112 mmol/L (96-108); Cholesterol 174 mg/dL (<200); Estimated Glomerular Filt Rate > 60; Glucose Random 103 mg/dL (60-115); HDL Cholesterol 36 mg/dL (>40); LDL Cholesterol Calculated 111 mg/dL (<100); Potassium 3.3 mmol/L (3.3-5.1); Rheumatoid Factor < 13.0 IU/mL (<15.0); Sodium 141 mmol/L (135-145); Total Protein 6.4 g/dL (6.5-8.0); Triglycerides 135 mg/dL (<150)
[2024-04-11 12:08] LABS: Free T4 (Free Thyroxine) 0.97 ng/dL (0.71-1.85); Thyroid Stimulating Hormone 2.12 uIU/mL (0.32-4.0); Vitamin D 25-OH Total 32.4 ng/mL (>30)
[2024-04-11 12:30] LABS: Folate 10.9 ng/mL (> or = 4.0); Vitamin B12 457 pg/mL (200-900)
[2024-04-12 04:27] LABS: HIV AB/AG Nonreactive (Nonreactive); HIV Num 1 0.05 S/CO (0.00-0.99)
[2024-04-14 11:08] LABS: Prot Elec - Albumin 3.9 g/dL (3.8-4.8); Prot Elec - Alpha1 0.2 g/dL (0.2-0.3); Prot Elec - Alpha2 0.6 g/dL (0.5-0.9); Prot Elec - Beta 1 0.4 g/dL (0.4-0.6); Prot Elec - Beta 2 0.4 g/dL (0.2-0.5); Prot Elec - Gamma 0.8 g/dL (0.8-1.7); Prot Elec - Total Protein 6.5 g/dL (6.1-8.1)
[2024-04-14 19:08] LABS: Lyme Abs Screen <0.90 index
[2024-04-15 07:52] LABS: Anti Nuclear Antibody Screen NEGATIVE (NEGATIVE)
[2024-04-16 03:33] LABS: Methylmalonic Acid 128 nmol/L (55-335)
== END 2024-04-11 09:01 | disposition home or self-care (01) ==
LOC: HO.HHCL 09:00
PROVIDERS: Visit Provider Family Medicine
DX: G62.89 Other specified polyneuropathies (principal)
CPT/HCPCS: 36415; 80048; 80061; 80076; 82306; 82607; 82746; 83036; 83921; 84165; 84439; 84443; 85027; 85652; 86038; 86140; 86431; 86617; 86618; 87389

== ENCOUNTER 2024-04-25 09:52 | Outpatient (AMB) | payer MEDICAID, SELFPAY ==
[2024-04-25 09:54] VITALS: BP 158/72; PULSE 66; O2SAT 98; BMI 39.4
--- NOTE | 2024-04-25 09:54 | MHC.OFFVIS ---
Vital Signs 04/25/24 09:54 Height 5 ft 4 in Weight 229 lb 4.492 oz BMI 39.4 BP 158/72 H Blood Pressure Location Rt brachial Position Sitting Pulse 66 Pulse Source Pulse Oximeter Pulse Oximetry (%) 98 Oxygen Delivery Method Room Air Intake Visit Reasons: Chronic idiopathic constipation & post op Intake Note: ESTABLISHED PATIENT Reason; s/p FUV. Changes/concerns? Nighttime difficulty w/ fecal abnormalities (mostly constipation). Pt has noticed worsening sx since having procedure/prep. Pt still feeling bloated as well. Wash Box Operator Required: Yes Wash Box Operator Services: Wash Box Operator Present (RAMIRO Larkin) Wash Box Operator Name: [id number] Sveta Larkin LM Information Interpreted: non-clinical & clinical Accompanied by: Self / Same As Patient Allergies bee pollen [bee stings] Allergy (Unknown, Verified 04/25/24 09:55) Unknown HPI HPI Chronic idiopathic constipation & post op: Details: LAST VISIT: Screen for colon cancer Postprandial diarrhea Chronic idiopathic constipation Plan Patient denies any cardiac or respiratory symptoms.? Denies any issues with anesthesia in the past.? Denies any history of sleep apnea, however was told by her that he noticed she stops breathing while sleeping. Patient was encouraged to call PCP for sleep apnea study? No history infectious diseases in the past or present.? Not on any anticoagulation therapy.? No family or personal history of colon cancer or polyps.? Patient denies melena, hematochezia, unintentional weight loss or ribbon like stools.? Discussed at length the pre-procedure,? prep, diet & medications as well as what to expect prior, during and after the procedure.?? Stressed the importance of good bowel prep.? Recommended the use of Vaseline or Calmoseptine OTC & baby wipes with bowel movements to promote comfort.? Patient reports postprandial loose stools depending on what she eats. Occasional constipation. Will send script for Citrucel and senna. Patient will return in 2 months to re-evaluate before she goes for colonoscopy. Patient is agreeable to this plan and verbalizes understanding of instructions. She was given the opportunity to ask questions and all questions answered. ? Thank you for allowing me to participate in her care Medications New bisacodyl (Dulcolax (bisacodyl)) take 4 tabs at noon the day before your colonoscopy 20 mg (4 x 5 mg) PO ONCE 1 day 4 tabs 0RF Z12.11 polyethylene glycol 3350 (Miralax) As directed by gastro[facility]ology [facility] at [facility] 238 grams PO ONCE 238 grams 0RF Z12.11 methylcellulose (laxative) (Citrucel) take it with full glass of water 500 mg PO DAILY 30 tabs 2RF K59.00 sennosides (Natural Senna Laxative) 17.2 mg (2 x 8.6 mg) PO BEDTIME 60 tabs 3RF constipation K59.00 COLONOSCOPY: Findings: Terminal Ileum: Not evaluated Cecum: Normal Ascending Colon: Normal Transverse Colon: Normal Descending Colon: Normal Sigmoid Colon: Moderate diverticulosis Rectum: A 3-4 mm diminutive appearing polyp seen on retroflexed exam - removed with a cold biopsy. Ano-rectum: Moderate internal hemorrhoids Colon preparation: Excellent, after some irrigation. Roosevelt Bowel Preparation Scale Right colon; 3 Transverse colon: 3 Left colon; 3 (0 = Unprepared colon segment with mucosa not seen due to solid stool that cannot be cleared. 1 = Portion of mucosa of the colon segment seen, but other areas of the colon segment not well seen due to staining, residual stool and/or opaque liquid. 2 = Minor amount of residual staining, small fragments of stool and/or opaque liquid, but mucosa of colon segment seen well. 3 = Entire mucosa of colon segment seen well with no residual staining, small fragments of stool or opaque liquid) Impression and Post Procedure Diagnosis: Colonoscopy Findings: One small polyp was removed Random biopsies were obtained from right and left colon to check for microscopic colitis. Moderate diverticulosis seen in the sigmoid colon Moderate hemorrhoids on retroflexed exam. Plan: Repeat Colonoscopy in 5 years if polyps are adenomatous and 10 year if polyps are hyperplastic. Above findings were reviewed with the patient and relevant handouts were given and the discharge area. PATHOLOGY: Diagnosis A. Colon, right, biopsy: Colonic mucosa within normal limits. B. Colon, left, biopsy: Colonic mucosa within normal limits. C. Rectum, polypectomy: Hyperplastic mucosal polyp TODAY'S VISIT Patient is here today for follow-up and to discuss colonoscopy results. Patient denies any ill effects from the prep, anesthesia or procedure itself. Patient reports that she continues to be constipated. Takes Citrucel in the morning and senna at night time and she still has trouble moving her bowels. Patient denies melena, hematochezia. Reports frequent abdominal bloating. Patient denies dyspepsia, dysphagia or odynophagia. Patient reports to have good appetite. Denies any abdominal pain or discomfort. Denies having diarrhea or mucus in his stool. Denies any other [facility] Medical History Chronic migraine without aura without status migrainosus, not intractable Stress incontinence Hypertension Surgical History History of cholecystectomy H/O section Social History Alcohol intake: never Patient Tobacco Use Status: Never used Tobacco Review of Systems Const Denies weight gain and Denies weight loss ENT Reports no additional complaints, Denies dysphagia and Denies odynophagia Card Reports no additional complaints Resp Reports no additional complaints GI Denies abdominal pain, Denies belching, Denies melena, Reports bloating, Denies change in bowel habits, Reports constipation, Denies dysphagia, Denies excessive flatus, Denies dyspepsia, Denies heartburn, Denies diarrhea, Denies loose stools, Denies nausea, Denies odynophagia and Denies vomiting Reports no additional complaints Musc Reports no additional complaints Neuro Reports no additional complaints Psych Reports no additional complaints Endo Reports no additional complaints Physical Exam Vital Signs: Last Vital Signs Pulse 66 04/25/24 09:54 BP 158/72 H 04/25/24 09:54 Pulse Ox 98 04/25/24 09:54 Oxygen Delivery Method Room Air 04/25/24 09:54 BMI result Body Mass Index 39.4 Const General: healthy appearing and no acute distress Nutritional Appearance: obese Orientation/consciousness: patient oriented x3 Resp Effort & Inspection: normal respiratory effort, able to speak in complete sentences, no tracheal deviation and symmetric chest movement Auscultation: clear to auscultation bilaterally Cardio Rate: regular rate GI Inspection: Yes obesity Palpation (GI): Soft to palpation, not firm, nontender and No hepatosplenomegaly present Auscultation: normal bowel sounds General: Yes no CVA tenderness Back/Spine/Pelvis Back: no CVA tenderness Skin General skin exam: elasticity normal, turgor normal and dry skin Neuro General: patient oriented x3 Psych Appearance: grossly normal Mental Status: mental status grossly normal Assessment & Plan Assessment & Plan (1) Postprandial diarrhea: Code(s): K52.9 - Noninfective gastroenteritis and colitis, unspecified (2) Chronic idiopathic constipation: Code(s): K59.04 - Chronic idiopathic constipation (3) Postprandial abdominal bloating: Code(s): R14.0 - Abdominal distension (gaseous) Plan Stop senna and start Dulcolax daily. Increase fluid intake and activity to promote better bowel motility. Continue fiber supplement. Increase fiber intake in her diet as well. Discussed with patient low FODMAP diet. She reports frequent abdominal bloating. List of food recommended as well as list of food to avoid given to patient in [place]. Patient will follow-up in 6 months, sooner on as needed basis. She is agreeable to this plan and verbalizes understanding of instructions. She was given the opportunity to ask questions and all questions answered. Thank you for allowing me to participate in her care Medications: New bisacodyl 10 mg (2 x 5 mg) PO BEDTIME 180 tabs 2RF Refilled methylcellulose (laxative) (Citrucel) take it with full glass of water 500 mg PO DAILY 90 tabs 2RF K59.00 - Constipation, unspecified Discontinued sennosides (Natural Senna Laxative) Discontinued Reason: Doctor's Order 17.2 mg (2 x 8.6 mg) PO BEDTIME 60 tabs 3RF constipation K59.00 - Constipation, unspecified Coding Level of Care Code Est Pt Level 3 (94371) Diagnoses Postprandial diarrhea K52.9 Chronic idiopathic constipation K59.04 Postprandial abdominal bloating R14.0 Time Spent (min) 30 Comment 20 minutes spent with patient and additional 10 minutes spent reviewing her records
== END 2024-04-25 10:22 | disposition home or self-care (01) ==
PROVIDERS: PCP General Practice; Visit Provider Nurse Practitioner Family
DX: K52.9 Noninfective gastroenteritis and colitis, unspecified (principal); K59.04 Chronic idiopathic constipation; R14.0 Abdominal distension (gaseous)
CPT/HCPCS: 99213

== ENCOUNTER → 2024-04-25 09:52 | Outpatient (BNVA) | payer MEDICAID, SELFPAY | PROVIDERS: PCP General Practice; Visit Provider Nurse Practitioner Family | DX: K52.9 Noninfective gastroenteritis and colitis, unspecified (principal); K59.04 Chronic idiopathic constipation; R14.0 Abdominal distension (gaseous) | CPT/HCPCS: 99212 ==

== ENCOUNTER 2024-09-19 10:39 | Outpatient (AMB) | payer OTHER, SELFPAY ==
--- NOTE | 2024-09-19 10:43 | HO.NEPHOV ---
Vital Signs 09/19/24 10:47 Height 5 ft 4 in Weight 230 lb 2 oz BMI 39.5 BP 124/90 H Blood Pressure Location Lt brachial Position Sitting Pulse 63 Pulse Source Pulse Oximeter Pulse Oximetry (%) 98 Oxygen Delivery Method Room Air Intake Visit Reasons: ENP: Hypokalemia/Conf Wind Turbine Design Engineer Required: Yes Wind Turbine Design Engineer Language: [employer] Presser Services: Wind Turbine Design Engineer Present Wind Turbine Design Engineer Name: [id number] Information Interpreted: clinical only Accompanied by: Self / Same As Patient Allergies bee pollen [bee stings] Allergy (Unknown, Verified 09/19/24 10:47) Unknown HPI Comments Details: Danish interpretor Cecilsureshbritt [id number] 44 years old lady with PMH of hypertension, vitamin-D deficiency, migraine is referred for evaluation of hypokalemia. Hypertension: since past 8 years, currently on amlodipine, losartan, propranolol no vomiting, no diarrhea, urine increased frequent PFSH Medical History (Updated 09/19/24 @ 11:07 by Mikael Sheppard MD) Hypokalemia Daytime somnolence Cubital tunnel syndrome on left Chronic midline thoracic back pain Breast pain Insulin resistance Migraine without aura and without status migrainosus, not intractable Urinary incontinence Vitamin D deficiency Dental calculus Chronic migraine without aura without status migrainosus, not intractable Stress incontinence Hypertension Surgical History History of cholecystectomy H/O section Social History Alcohol intake: never Patient Tobacco Use Status: Never used Tobacco Review of Systems Const Details: Const Denies body aches, Denies chills, Denies excessive sweating and sometimes fatigue Eyes Denies blurry vision and Denies change in vision ENT Denies bleeding gums and Denies change in voice Card Denies chest pain and Denies leg ulcers Resp Denies cough and Denies excessive phlegm production GI Denies abdominal pain and Denies bloating Denies hematuria, Denies urinary frequency and Denies difficulty voiding Musc Denies abnormal gait Neuro Denies Neuro-related abnormal movements, Denies abnormal gait and Denies behavioral changes Psych Denies behavioral changes and Denies change in appetite Endo Denies change in body appearance, Denies cold intolerance, Denies excessive sweating and Denies fatigue Physical Exam General: Not in any acute distress, comfortable, sitting on the chair Nutritional Appearance: obese,well nourished and overweight Eyes: appearance normal, both eyes and all related structures; Alignment and Position: alignment normal and position normal Neck: No lymphadenopathy, no thyromegaly Resp: bilateral air entry equal, no added sounds present Cardio: Regular rate, regular rhythm; Heart sounds: S1 normal heart sound present and S2 normal heart sound present, no edema GI: soft, nontender, no guarding, no hepatosplenomegaly : bladder normal to inspection, bladder normal to palpation, no renal angle tenderness Skin: no rashes or lesions noted and elasticity normal Neuro: oriented to person, oriented to place, oriented to time and moves all extremities Results Reviewed Nephrology Results: Hgb 12.9 g/dl (12.0-16.0) 04/11/24 WBC 8.5 X10*3/uL (4.8-10.8) 04/11/24 Plt Count 236 X10*3/uL (160-400) 04/11/24 Sodium 141 mmol/L (135-145) 04/11/24 Potassium 3.3 mmol/L (3.3-5.1) 04/11/24 Chloride 112 mmol/L (96-108) H 04/11/24 Carbon Dioxide 24 mmol/L (22-29) 04/11/24 BUN 9 mg/dL (9-16) 04/11/24 Creatinine 0.74 mg/dL (0.5-1.4) 04/11/24 Calcium 8.3 mg/dL (8.4-10.2) L 04/11/24 Assessment & Plan Assessment & Plan (1) Hypertension: Code(s): I10 - Essential (primary) hypertension Category: Medical (2) Morbid obesity with BMI of 40.0-44.9, adult: Code(s): E66.01 - Morbid (severe) obesity due to excess calories; Z68.41 - Body mass index [BMI] 40.0-44.9, adult Category: Medical (3) Hypokalemia: Code(s): E87.6 - Hypokalemia Category: Medical Plan Hypokalemia mild: - most recent potassium: 3.3 - mother has history high blood pressure but no family history of hypokalemia. - symptoms: no weakness, cramps once a month, has constipation takes laxative - no vomiting, diarrhea - we will check spot urine potassium/creatinine ratio, 24 hour urine potassium to look renal or extrarenal cause - we will get magnesium, calcium levels - we will get plasma renin aldosterone levels, patient is on losartan which might alter the results the patient is hypertensive Orders: Orders Magnesium, 24Hr Urine Today E66.01 - Morbid (severe) obesity due to excess calories, E87.6 - Hypokalemia, I10 - Essential (primary) hypertension, Z68.41 - Body mass index [BMI] 40.0-44.9, adult Magnesium, Random Urine Today E66.01 - Morbid (severe) obesity due to excess calories, E87.6 - Hypokalemia, I10 - Essential (primary) hypertension, Z68.41 - Body mass index [BMI] 40.0-44.9, adult Aldosterone, 24Hr Urine Today E66.01 - Morbid (severe) obesity due to excess calories, E87.6 - Hypokalemia, I10 - Essential (primary) hypertension, Z68.41 - Body mass index [BMI] 40.0-44.9, adult Aldost/Renin Today E66.01 - Morbid (severe) obesity due to excess calories, E87.6 - Hypokalemia, I10 - Essential (primary) hypertension, Z68.41 - Body mass index [BMI] 40.0-44.9, adult Basic Metabolic Panel Today E66.01 - Morbid (severe) obesity due to excess calories, E87.6 - Hypokalemia, I10 - Essential (primary) hypertension, Z68.41 - Body mass index [BMI] 40.0-44.9, adult Magnesium Today E66.01 - Morbid (severe) obesity due to excess calories, E87.6 - Hypokalemia, I10 - Essential (primary) hypertension, Z68.41 - Body mass index [BMI] 40.0-44.9, adult Potassium Urine Random Today E66.01 - Morbid (severe) obesity due to excess calories, E87.6 - Hypokalemia, I10 - Essential (primary) hypertension, Z68.41 - Body mass index [BMI] 40.0-44.9, adult Potassium 24 Hr Urine Group Today E66.01 - Morbid (severe) obesity due to excess calories, E87.6 - Hypokalemia, I10 - Essential (primary) hypertension, Z68.41 - Body mass index [BMI] 40.0-44.9, adult Creatinine Urine Today E66.01 - Morbid (severe) obesity due to excess calories, E87.6 - Hypokalemia, I10 - Essential (primary) hypertension, Z68.41 - Body mass index [BMI] 40.0-44.9, adult Creatinine, 24 Hr Group Today E66.01 - Morbid (severe) obesity due to excess calories, E87.6 - Hypokalemia, I10 - Essential (primary) hypertension, Z68.41 - Body mass index [BMI] 40.0-44.9, adult Calcium, 24 Hr Ur Today E66.01 - Morbid (severe) obesity due to excess calories, E87.6 - Hypokalemia, I10 - Essential (primary) hypertension, Z68.41 - Body mass index [BMI] 40.0-44.9, adult Calcium, Random Urine Today E66.01 - Morbid (severe) obesity due to excess calories, E87.6 - Hypokalemia, I10 - Essential (primary) hypertension, Z68.41 - Body mass index [BMI] 40.0-44.9, adult Coding Level of Care Code New Pt Level 4 (86090) Diagnoses Hypertension I10 Morbid obesity with BMI of 40.0-44.9, adult E66.01; Z68.41 Hypokalemia E87.6
[2024-09-19 10:47] VITALS: BP 124/90; PULSE 63; O2SAT 98; BMI 39.5
--- OUTSIDE RECORDS SUMMARY | 2024-09-19 11:42 | XMS_ITS | Encounter Summary ---
Author Organization [employer] Address [address] [place] [address] [address] [place] [address] Care Team Providers Care Percussion Instrument Tuner Name Role Phone Raissa Mcdonald MD Primary Care Provider [phone] Reason for Visit * Reason Comments Med Refill Encounter Details Date Type Department Care Team (Late st Contact Info) Description 06/10/2024 Refill [facility] MEDICINE [address] [place], [place] [phone] Raissa Mcdonald MD [address] [place], [place] [phone] Social History Tobacco Use Types Packs/Day Years Used Date Smoking Tobacco: Never Smokeless Tobacco: Never Alcohol Use Standard Drinks/Week Comments Never 0 (1 standard drink = 0.6 oz pur e alcohol) Alcohol Answer Date Recorded How often do you have a drink containing alcohol ? 0 04/23/2024 How many drinks containing a lcohol do you have on a typical day when you are drinking? 0 04/23/2024 How often do you have six or more drinks on one occasion? 0 04/23/2024 Depression Answer Date Recorded Patient Health Questionnaire-9 Score 8 04/22/2024 Patient Health Questionnaire-9 Score 8 04/22/2024 Last PHQ-9: Questionnaire Data Not on file 0 04/22/2024 Housing Stability Answer Date Recorded What is your housing situation today? I have jonelle stephens 08/09/[address] you li ve. Do you have problems with any of the following? None of the above;Pests such as bugs, ants, or mice 08/09/2023 Food Insecurity Answer Date Recorded Within the past 12 months, y ou worried that your food would run out before you got money to buy more: Never True 01/22/2023 Within the past 12 months,th e food you bought just didn't last and you didn't have enough money to get more: Never True Transportation Answer Date Recorded In the past 12 months, has l ack of transportation kept you from medical appts, meetings, work or from getting things needed for daily living? No 08/09/2023 Utilities Answer Date Recorded In the past 12 months, has t he electric, gas, oil or water company threatened to shut off services in your home? No 01/22/2023 Depression Answer Date Recorded Patient Health Questionnaire-2 Score 3 04/22/2024 Comments No Sex and Gender Information Value Date Recorded Sex Assigned at Female 02/06/2022 10:30 AM EDT Legal Sex Female 10:30 AM EDT Gender Identity Female 02/06/2022 10:30 AM EDT Sexual Orientation Straight 02/06/2022 10 :30 AM EDT documented as of this encounter Plan of Treatment Upcoming Encounters Date Type Department Care Team (Late st Contact Info) Description 11/21/2024 9:30 AM EDT Office Visit [facility] MEDICINE [address] [place] [address] Raissa Mcdonald MD [address] [place] [phone] 01/13/2025 10:00 AM EDT Office Visit [facility] ADULT DENTAL [address] [place] [address] Heydi Flor documented as of this encounter Visit Diagnoses Not on filedocumented in this encounter Additional Health Concerns Assessment Noted Time PHQ-9 Depression Total Score: 8 04/22/19 25 9:16 AM EST documented as of this encounter Care Teams Percussion Instrument Tuner Relationship Specialty Start Date End Date Raissa Mcdonald MD [address] [place] [phone] PCP - General Family Medicine 03/19/20 documented as of this encounter
== END 2024-09-19 11:12 | disposition home or self-care (01) ==
LOC: HO.HKA 10:40
PROVIDERS: PCP General Practice; Referring Provider Internal Medicine; Visit Provider Internal Medicine Critical Care Medicine
DX: I10 Essential (primary) hypertension (principal); E66.01 Morbid (severe) obesity due to excess calories; Z68.41 Body mass index [BMI] 40.0-44.9, adult; E87.6 Hypokalemia
CPT/HCPCS: 99204

== ENCOUNTER → 2024-09-19 10:39 | Outpatient (BNVA) | payer OTHER, SELFPAY | PROVIDERS: PCP General Practice; Referring Provider Internal Medicine; Visit Provider Internal Medicine Critical Care Medicine | DX: I10 Essential (primary) hypertension (principal); E66.01 Morbid (severe) obesity due to excess calories; E87.6 Hypokalemia; Z68.41 Body mass index [BMI] 40.0-44.9, adult | CPT/HCPCS: 99202 ==

== ENCOUNTER 2024-10-01 08:46 | Outpatient (REF) | payer OTHER, SELFPAY ==
--- OUTSIDE RECORDS SUMMARY | 2024-10-01 09:17 | XMS_ITS | Encounter Summary ---
Author Organization [employer] Address [address] [place] [address] [address] [place] [address] Care Team Providers Care Mud Plant Operator Name Role Phone Raissa Mcdonald MD Primary Care Provider [phone] Reason for Visit * Reason Comments Med Refill Encounter Details Date Type Department Care Team (Late st Contact Info) Description 06/10/2024 Refill [facility] MEDICINE [address] [place], [place] [phone] Raissa Mcdonald MD [address] [place], [place] [phone] Social History Tobacco Use Types Packs/Day Years [...] Description 11/21/2024 9:30 AM EDT Office Visit [facility] MEDICINE [address] [place] [address] Raissa Mcdonald MD [address] [place] [phone] 01/13/2025 10:00 AM EDT Office Visit [facility] ADULT DENTAL [address] [place] [address] Heydi Flor documented as of this encounter Visit Diagnoses Not on filedocumented in this encounter Additional Health Concerns Assessment Noted Time PHQ-9 Depression Total Score: 8 04/22/19 25 9:16 AM EST documented as of this encounter Care Teams Mud Plant Operator Relationship Specialty Start Date End Date Raissa Mcdonald MD [address] [place] [phone] PCP - General Family Medicine 03/19/20 documented as of this encounter
[2024-10-01 10:06] LABS: Anion Gap 12 (12-20); Blood Urea Nitrogen 14 mg/dL (9-16); Calcium 8.4 mg/dL (8.4-10.2); Carbon Dioxide 20 mmol/L (22-29); Chloride 113 mmol/L (96-108); Estimated Glomerular Filt Rate > 60; Glucose Random 95 mg/dL (60-115); Magnesium 2.1 mg/dL (1.6-2.6); Potassium 3.5 mmol/L (3.3-5.1); Sodium 141 mmol/L (135-145)
[2024-10-01 11:33] LABS: Creatinine Urine 277.76 mg/dL
[2024-10-01 11:37] LABS: Creatinine, mg/dL 129.24; Potassium, 24U 33.1 mmol/L
[2024-10-01 11:50] LABS: Creatinine, 24Hr Urine 1.3 G/Day (1.0-2.0); Potassium, 24 Hr Urine 33.9 mmol/Day (25-125); Total Volume 24 Hour Urine 1025 mL
[2024-10-03 21:19] LABS: Calcium, 24 Hr Urine 171 mg/24 h; Calcium/Creatinine Ratio 128 mg/g creat (30-275); Creatinine 24Hr Urine 1.33 g/24 h (0.50-2.15)
[2024-10-06 13:13] LABS: Aldosterone/Renin Ratio 63.6 Ratio (0.9-28.9); Plasma Renin Activity 0.22 ng/mL/h (0.25-5.82)
[2024-10-07 08:18] LABS: Creatinine, Random Urine 254 mg/dL (20-275); Magnesium, Random Urine 26 mg/g creat (22-130)
[2024-10-08 03:59] LABS: Creatinine, 24H Ur 1.35 g/24 h (0.50-2.15); Magnesium, 24H Urine 83 mg/24 h (18-130); Magnesium, Urine 24H/g Creat 62 mg/g creat (30-135); Total Volume 1025 mL
[2024-10-13 01:54] LABS: Aldosterone, 24Hr Urine 5.3 mcg/24 h; Creatinine 24Hr Urine 1.33 g/24 h (0.50-2.15); Total Volume 1025 mL
== END 2024-10-01 08:47 | disposition home or self-care (01) ==
LOC: HO.10HDL 08:46
PROVIDERS: Visit Provider Internal Medicine Critical Care Medicine
DX: I10 Essential (primary) hypertension (principal); E66.01 Morbid (severe) obesity due to excess calories; Z68.41 Body mass index [BMI] 40.0-44.9, adult; E87.6 Hypokalemia
CPT/HCPCS: 36415; 80048; 82088; 82310; 82340; 82570; 83735; 84133

== ENCOUNTER 2024-10-21 10:46 | Outpatient (AMB) | payer OTHER, MEDICAID, SELFPAY ==
[2024-10-21 10:48] VITALS: BP 118/80; PULSE 55; O2SAT 97; BMI 39.6
--- NOTE | 2024-10-21 10:48 | HO.NEPHOV ---
Vital Signs 10/21/24 10:48 Height 5 ft 4 in Weight 231 lb BMI 39.6 BP 118/80 Blood Pressure Location Lt brachial Position Sitting Pulse 55 Pulse Source Pulse Oximeter Pulse Oximetry (%) 97 Oxygen Delivery Method Room Air Intake Visit Reasons: 1 MO FU-Conf [employer] Manager Required: Yes [employer] Manager Name: Tarsha [id number] Accompanied by: Self / Same As Patient Allergies bee pollen (bee stings) Allergy (Unknown, Verified 10/21/24 10:53) Unknown Medication List - Last Reconciled 10/21/24 by Mikael Sheppard MD bisacodyl 10 mg (2 x 5 mg) PO BEDTIME calcium carbonate-vitamin D3 600 mg-5 mcg (200 unit) 1 tab PO QAM cholecalciferol (vitamin D3) (Vitamin D3) 50 mcg PO QAM gabapentin 100 mg PO BEDTIME magnesium oxide 400 mg PO QAM melatonin 9 mg PO BEDTIME PRN oxybutynin chloride ER 10 mg PO DAILY propranolol 80 mg PO BID spironolactone 50 mg PO DAILY topiramate 50 mg PO BEDTIME [facility] Medical History (Updated 09/19/24 @ 11:07 by Mikael Sheppard MD) Hypokalemia Daytime somnolence Cubital tunnel syndrome on left Chronic midline thoracic back pain Breast pain Insulin resistance Migraine without aura and without status migrainosus, not intractable Urinary incontinence Vitamin D deficiency Dental calculus Chronic migraine without aura without status migrainosus, not intractable Stress incontinence Hypertension Surgical History History of cholecystectomy H/O section Social History Alcohol intake: never Patient Tobacco Use Status: Never used Tobacco Physical Exam Vital Signs: Last Vital Signs Pulse 55 10/21/24 10:48 BP 118/80 10/21/24 10:48 Pulse Ox 97 10/21/24 10:48 Oxygen Delivery Method Room Air 10/21/24 10:48 BMI result Body Mass Index 39.6 Results Reviewed Nephrology Results: Hgb, (12.0-16.0) 12.9 g/dl 04/11/24 WBC, (4.8-10.8) 8.5 X10*3/uL 04/11/24 Plt Count, (160-400) 236 X10*3/uL 04/11/24 Sodium, (135-145) 141 mmol/L 10/01/24 Potassium, (3.3-5.1) 3.5 mmol/L 10/01/24 Chloride, (96-108) 113 mmol/L H 10/01/24 Carbon Dioxide, (22-29) 20 mmol/L L 10/01/24 BUN, (9-16) 14 mg/dL 10/01/24 Creatinine, (0.5-1.4) 0.66 mg/dL 10/01/24 Calcium, (8.4-10.2) 8.4 mg/dL 10/01/24 Urine Creatinine 277.76 mg/dL 10/01/24 Assessment & Plan Assessment & Plan (1) Morbid obesity with BMI of 40.0-44.9, adult: Code(s): E66.01 - Morbid (severe) obesity due to excess calories; Z68.41 - Body mass index [BMI] 40.0-44.9, adult Category: Medical (2) Hypokalemia: Code(s): E87.6 - Hypokalemia Category: Medical Plan Hypokalemia mild: - most recent potassium: 3.5, Mg 2.1 - no hypertension, low plasma renin but high plasma aldosterone 63.6 (normal < 28.9). 24 hr aldosterone levels normal 5.3. Cortisol normal. Although her spot plasma aldosterone levels are high her 24 hr urine aldosterone levels were normal as well as 24 hr urine potassium levels. I offered her further testing including saline infusion test and oral sodium/salt loading test but she refused to any further tests. Will start her on spironolactone 50mg daily, will reduce her losartan to 50mg and discontinue amlodipine. Will see her back in month with repeat potassium levels if needed will increase the dose of spironolactone depending on blood pressures and potassium levels. - mother has history high blood pressure but no family history of hypokalemia. - symptoms: no weakness, cramps once a month, has constipation takes laxative, no vomiting, diarrhea - spot urine potassium/creatinine ratio was high, but 24 hour urine potassium, magnesium and calcium levels were normal - talked to pharmacist, who said she is not on any potassium supplements. Hypertension: - on amlodipine 2.5 which we will discontinue - losartan will reduce to 50mg daily as we are adding spirnolactone 50mg daily - continue propranolol 80mg BID for migrane. time spent is about 35 minutes- 15 minutes on lab interpretation, 15 minutes in encounter and 5 minutes on documentation. Orders: Orders Basic Metabolic Panel 1 Month E66.01 - Morbid (severe) obesity due to excess calories, E87.6 - Hypokalemia, Z68.41 - Body mass index [BMI] 40.0-44.9, adult Medications: New spironolactone 50 mg PO DAILY 30 tabs 3RF losartan 50 mg PO DAILY 30 tabs 5RF Coding Level of Care Code Est Pt Level 4 (83001) Diagnoses Morbid obesity with BMI of 40.0-44.9, adult E66.01; Z68.41 Hypokalemia E87.6
--- OUTSIDE RECORDS SUMMARY | 2024-10-21 12:07 | XMS_ITS | Encounter Summary ---
Author Organization [employer] Address [address] [place] [address] [address] [place] [address] Care Team Providers Care Lvn Lpn Name Role Phone Raissa Mcdonald MD Primary Care Provider Reason for Visit * Reason Comments Med Refill Encounter Details Date Type Department Care Team (Late st Contact Info) Description 06/10/2024 Refill [facility] [address] [place], [place] [phone] Raissa Mcdonald MD [address] [place], [place] [phone] Social History Tobacco Use Types Packs/Day Years [...] Description 11/21/2024 9:30 AM EDT Office Visit [facility] [address] [place] [address] Raissa Mcdonald MD [address] [place] [address] 01/13/2025 10:00 AM EDT Office Visit [facility] ADULT DENTAL [address] [place] [address] Heydi Flor documented as of this encounter Visit Diagnoses Not on filedocumented in this encounter Additional Health Concerns Assessment Noted Time PHQ-9 Depression Total Score: 8 04/22/19 25 9:16 AM EST documented as of this encounter Care Teams Lvn Lpn Relationship Specialty Start Date End Date Raissa Mcdonald MD [address] [place] [address] PCP - General Family Medicine 03/19/20 documented as of this encounter
== END 2024-10-21 11:39 | disposition home or self-care (01) ==
LOC: HO.HKA 10:47
PROVIDERS: PCP General Practice; Visit Provider Internal Medicine Critical Care Medicine
DX: E66.01 Morbid (severe) obesity due to excess calories (principal); Z68.41 Body mass index [BMI] 40.0-44.9, adult; E87.6 Hypokalemia
CPT/HCPCS: 99214

== ENCOUNTER → 2024-10-21 10:46 | Outpatient (BNVA) | payer OTHER, SELFPAY | PROVIDERS: PCP General Practice; Visit Provider Internal Medicine Critical Care Medicine | DX: E66.01 Morbid (severe) obesity due to excess calories (principal); Z68.41 Body mass index [BMI] 40.0-44.9, adult; E87.6 Hypokalemia | CPT/HCPCS: 99212 ==

== ENCOUNTER 2024-11-07 10:21 | Outpatient (REF) | payer MEDICAID, SELFPAY ==
--- OUTSIDE RECORDS SUMMARY | 2024-11-07 10:32 | XMS_ITS | Encounter Summary ---
Author Organization [employer] Address [address] [place] [address] 7[address] [place] [address] Care Team Providers Care Credit Or Loans Officer Name Role Phone Raissa Mcdonald MD Primary Care Provider [phone] Reason for Visit * Reason Comments Med Refill Encounter Details Date Type Department Care Team (Late st Contact Info) Description 06/10/2024 Refill [facility] MEDICINE [address] [place], [place] [phone] Raissa Mcdonald MD [address] [place], [place] [phone] Social History Tobacco Use Types Packs/Day Years [...] Description 11/21/2024 9:30 AM EDT Office Visit [facility] MEDICINE [address] [place] [address] Raissa Mcdonald MD [address] [place] [address] 01/13/2025 10:00 AM EDT Office Visit [facility] ADULT DENTAL [address] [place] [address] Heydi Flor documented as of this encounter Visit Diagnoses Not on filedocumented in this encounter Additional Health Concerns Assessment Noted Time PHQ-9 Depression Total Score: 8 04/22/19 25 9:16 AM EST documented as of this encounter Care Teams Credit Or Loans Officer Relationship Specialty Start Date End Date Raissa Mcdonald MD [address] [place] [address] PCP - General Family Medicine 03/19/20 documented as of this encounter
[2024-11-07 11:29] LABS: Anion Gap 11 (12-20); Blood Urea Nitrogen 12 mg/dL (9-16); Calcium 8.7 mg/dL (8.4-10.2); Carbon Dioxide 22 mmol/L (22-29); Chloride 111 mmol/L (96-108); Estimated Glomerular Filt Rate > 60; Potassium 3.7 mmol/L (3.3-5.1); Sodium 140 mmol/L (135-145)
== END 2024-11-07 10:22 | disposition home or self-care (01) ==
LOC: HO.LAB 10:21
PROVIDERS: PCP General Practice; Visit Provider Internal Medicine Critical Care Medicine
DX: E66.01 Morbid (severe) obesity due to excess calories (principal); Z68.41 Body mass index [BMI] 40.0-44.9, adult; E87.6 Hypokalemia
CPT/HCPCS: 36415; 80048

== ENCOUNTER 2024-11-14 15:44 | Outpatient (AMB) | payer MEDICAID, SELFPAY ==
--- OUTSIDE RECORDS SUMMARY | 2024-11-14 15:45 | XMS_ITS | Encounter Summary ---
Author Organization [employer] Address [address] [place] [address] [address] [place] [address] Care Team Providers Care Coding Quality Analyst Name Role Phone Raissa Mcdonald MD Primary Care Provider [phone] Reason for Visit * Reason Comments Med Refill Encounter Details Date Type Department Care Team (Late st Contact Info) Description 06/10/2024 Refill [facility] MEDICINE [address] [place], [place] [phone] Raissa Mcdonald MD [address] [place], [place] [phone] Social History Tobacco Use Types Packs/Day Years [...] Care Team (Late st Contact Info) Description 01/09/2025 3:30 PM EDT Office Visit [facility] MEDICINE [address] [place] [address] Raissa Mcdonald MD [address] [place] [address] 01/13/2025 10:00 AM EDT Office Visit [facility] ADULT DENTAL [address] [place] [address] Heydi Flor documented as of this encounter Visit Diagnoses Not on filedocumented in this encounter Additional Health Concerns Assessment Noted Time PHQ-9 Depression Total Score: 8 04/22/19 25 9:16 AM EST documented as of this encounter Care Teams Coding Quality Analyst Relationship Specialty Start Date End Date Raissa Mcdonald MD [address] [place] [address] PCP - General Family Medicine 03/19/20 documented as of this encounter
--- NOTE | 2024-11-14 15:50 | HO.NEPHOV_ITS ---
Vital Signs 11/14/24 15:51 Height 5 ft 4 in Weight 234 lb 4 oz BMI 40.2 BP 130/90 H Blood Pressure Location Lt brachial Position Sitting Pulse 80 Pulse Source Pulse Oximeter Pulse Oximetry (%) 97 Oxygen Delivery Method Room Air Intake Visit Reasons: FU-LVM Physician Credentialing Specialist Required: Yes Physician Credentialing Specialist Language: Try On Baster Services: Physician Credentialing Specialist Present Physician Credentialing Specialist Name: Erich [id number] Information Interpreted: clinical only Accompanied by: Self / Same As Patient Allergies bee pollen (bee stings) Allergy (Unknown, Verified 11/14/24 15:51) Unknown HPI Comments Details: Syriac interpretor Erich [id number] 44 years old lady with PMH of hypertension, vitamin-D deficiency, migraine here for follow-up of hypertension and hypokalemia Hypertension: since past 8 years, currently on amlodipine, losartan, propranolol No new complaints, doing well. [facility] Medical History (Updated 09/19/24 @ 11:07 by Mikael Sheppard MD) Hypokalemia Daytime somnolence Cubital tunnel syndrome on left Chronic midline thoracic back pain Breast pain Insulin resistance Migraine without aura and without status migrainosus, not intractable Urinary incontinence Vitamin D deficiency Dental calculus Chronic migraine without aura without status migrainosus, not intractable Stress incontinence Hypertension Surgical History History of cholecystectomy H/O section Social History Alcohol intake: never Patient Tobacco Use Status: Never used Tobacco Review of Systems Const Details: Const : no body aches, no chills, no excessive sweating and no fatigue Eyes: no blurry vision and no change in vision ENT: no bleeding gums and no change in voice, no dizziness Card: no chest pain, no shortness of breath, no orthopnea, no PND Resp: no cough, no excessive phlegm production, no SOB GI: no abdominal pain and no nausea, no vomiting : no hematuria, no urinary frequency and no difficulty voiding Musc: no abnormal gait, no bone pain Neuro: no abnormal movements, no weakness, no dizziness Psych: no behavioral changes and no change in appetite Endo: no change in body appearance, no cold intolerance Physical Exam General: not in any acute distress, comfortable, sitting on the chair Nutritional Appearance: well nourished and overweight Eyes: normal position, no icterus Neck: No lymphadenopathy, no thyromegaly Resp: bilateral air entry equal, bilateral crackles heard Cardio: normal S1, S2 heard, no murmur heard, no edema GI: soft, nontender, no guarding, no hepatosplenomegaly : bladder normal to inspection, bladder normal to palpation, no renal angle tenderness Skin: no rashes or lesions noted and elasticity normal Neuro: oriented to person, oriented to place, oriented to time and moves all extremities Results Reviewed Nephrology Results: Hgb, (12.0-16.0) 12.9 g/dl 04/11/24 WBC, (4.8-10.8) 8.5 X10*3/uL 04/11/24 Plt Count, (160-400) 236 X10*3/uL 04/11/24 Sodium, (135-145) 140 mmol/L 11/07/24 Potassium, (3.3-5.1) 3.7 mmol/L 11/07/24 Chloride, (96-108) 111 mmol/L H 11/07/24 Carbon Dioxide, (22-29) 22 mmol/L 11/07/24 BUN, (9-16) 12 mg/dL 11/07/24 Creatinine, (0.5-1.4) 0.76 mg/dL 11/07/24 Calcium, (8.4-10.2) 8.7 mg/dL 11/07/24 Urine Creatinine 277.76 mg/dL 10/01/24 Assessment & Plan Assessment & Plan (1) Hypertension: Code(s): I10 - Essential (primary) hypertension Category: Medical (2) Hypokalemia: Code(s): E87.6 - Hypokalemia Category: Medical (3) Morbid obesity with BMI of 40.0-44.9, adult: Code(s): E66.01 - Morbid (severe) obesity due to excess calories; Z68.41 - Body mass index [BMI] 40.0-44.9, adult Category: Medical Plan Hypokalemia mild: - most recent potassium: 3.7, Mg 2.1 - low plasma renin but high plasma aldosterone 63.6 (normal < 28.9). 24 hr aldosterone levels normal 5.3. Cortisol normal. Although her spot plasma aldosterone levels are high her 24 hr urine aldosterone levels were normal as well as 24 hr urine potassium levels. I offered her further testing including saline infusion test and oral sodium/salt loading test but she refused to any further tests. - continue spironolactone 50mg daily, losartan to 50mg . - mother has history high blood pressure but no family history of hypokalemia. - symptoms: no weakness, cramps once a month, has constipation takes laxative, no vomiting, diarrhea - spot urine potassium/creatinine ratio was high, but 24 hour urine potassium, magnesium and calcium levels were normal - talked to pharmacist, who said she is not on any potassium supplements. Hypertension: - continue spironolactone 50mg and losartan 50mg. - continue propranolol 80mg BID for migrane. will follow her back in 3 months with repeat labs. Orders: Orders Basic Metabolic Panel 3 Months E66.01 - Morbid (severe) obesity due to excess calories, E87.6 - Hypokalemia, I10 - Essential (primary) hypertension, Z68.41 - Body mass index [BMI] 40.0-44.9, adult Coding Level of Care Code Est Pt Level 4 (04717) Diagnoses Hypertension I10 Hypokalemia E87.6 Morbid obesity with BMI of 40.0-44.9, adult E66.01; Z68.41
[2024-11-14 15:51] VITALS: BP 130/90; PULSE 80; O2SAT 97; BMI 40.2
== END 2024-11-14 16:14 | disposition home or self-care (01) ==
LOC: HO.HKA 15:44
PROVIDERS: PCP General Practice; Visit Provider Internal Medicine Critical Care Medicine
DX: I10 Essential (primary) hypertension (principal); E87.6 Hypokalemia; E66.01 Morbid (severe) obesity due to excess calories; Z68.41 Body mass index [BMI] 40.0-44.9, adult
CPT/HCPCS: 99214

== ENCOUNTER → 2024-11-14 15:44 | Outpatient (BNVA) | payer MEDICAID, SELFPAY | PROVIDERS: PCP General Practice; Visit Provider Internal Medicine Critical Care Medicine | DX: I10 Essential (primary) hypertension (principal); E87.6 Hypokalemia; E66.01 Morbid (severe) obesity due to excess calories; Z68.41 Body mass index [BMI] 40.0-44.9, adult | CPT/HCPCS: 99212 ==

== ENCOUNTER 2025-02-23 07:20 | Outpatient (REF) | payer MEDICAID, SELFPAY ==
--- OUTSIDE RECORDS SUMMARY | 2025-02-23 07:44 | XMS_ITS | Encounter Summary ---
Author Organization [employer] Address [address] [place] [address] [address] [place] [address] Care Team Providers Care Pan Helper Name Role Phone Raissa Mcdonald MD Primary Care Provider [phone] Reason for Visit * Reason Comments Med Refill Encounter Details Date Type Department Care Team (Late st Contact Info) Description 02/19/2023 Refill [facility] MEDICINE [address] [place], [place] [phone] Raissa Mcdonald MD [address] [place], [place] [phone] Acute cough Social History Tobacco Use Types Packs/Day Years Used Date Smoking Tobacco: Never Smokeless Tobacco: Never Alcohol Use Standard Drinks/Week Comments Never 0 (1 standard drink = 0.6 oz pur e alcohol) PHQ-2 Answer Date Recorded Patient Health Questionnaire-2 Score 0 10/16/2022 Housing Stability Answer Date Recorded What is your housing situation today? I have jonelleeli stephens 01/22/[address] you li ve. Do you have problems with any of the following? None of the above 01/22/2023 Food Insecurity Answer Date Recorded Within the [...] from getting things needed for daily living? Yes, it has kept me from medical appointments or getting medications. 01/16/2023 Utilities Answer Date Recorded In the past 12 months, has t he electric, gas, oil or water company threatened to shut off services in your home? No 01/22/2023 Depression Answer Date Recorded Patient Health Questionnaire-2 Score 0 10/16/2022 Comments No Sex and Gender Information Value Date Recorded Sex Assigned at Female 02/06/2022 10:30 AM EDT Legal Sex Female 10:30 AM EDT Gender Identity Female 02/06/2022 10:30 AM EDT Sexual Orientation Straight 02/06/2022 10 :30 AM EDT documented as of this encounter Plan of Treatment Upcoming Encounters Date Type Department Care Team (Late st Contact Info) Description 06/29/2025 9:00 AM EDT Office Visit [facility] OPTOM[facility] [address] [place] [address] Everett, Holly, OD [address] [place] [address] 07/13/2025 8:45 AM EDT Office Visit [facility] ADULT DENTAL [address] [place] [address] Yuliet, Oanh [address] [place] [address] documented as of this encounter Visit Diagnoses Diagnosis Acute cough documented in this encounter Care Teams Pan Helper Relationship Specialty Start Date End Date Raissa Mcdonald MD [address] [place] [address] PCP - General Family Medicine 03/19/20 documented as of this encounter
--- OUTSIDE RECORDS SUMMARY | 2025-02-23 07:44 | XMS_ITS | Encounter Summary ---
Author Organization [employer] Address [address] [facility] [address]t [place] [address] Care Team Providers Care Party Plan Sales Unit Sales Leader Name Role Phone Raissa Mcdonald MD Primary Care Provider [phone] Encounter Details Date Type Department Care Team ([facility] st Contact Info) Description 02/12/2025 Telephone [facility] MEDICINE [address] [place], [place] [phone] Raissa Mcdonald MD [address] [place], [place] [phone] Social History Tobacco Use Types Packs/Day Years [...] Description 06/29/2025 9:00 AM EDT Office Visit [facility] OPT[facility] [address] [place] [address] Everett, Holly, OD [address] [place] [address] 07/13/2025 8:45 AM EDT Office Visit [facility] ADULT DENTAL [address] [place] [address] Yuliet, Oanh [address] [place] [address] documented as of this encounter Visit Diagnoses Not on filedocumented in this encounter Additional Health Concerns Assessment Noted Time PHQ-9 Depression Total Score: 8 04/22/19 25 9:16 AM EST documented as of this encounter Care Teams Party Plan Sales Unit Sales Leader Relationship Specialty Start Date End Date Raissa Mcdonald MD [address] [place] [address] PCP - General Family Medicine 03/19/20 documented as of this encounter
--- OUTSIDE RECORDS SUMMARY | 2025-02-23 07:44 | XMS_ITS | Encounter Summary ---
Author Organization [employer] Address [address] [place] [address] [address] [place] [address] Care Team Providers Care Clinic Md Associate Name Role Phone Raissa Mcdonald MD Primary Care Provider [phone] Reason for Visit * Reason Comments Med Refill Encounter Details Date Type Department Care Team (Late st Contact Info) Description 06/10/2024 Refill [facility] MEDICINE [address] [place], [place] [phone] Raissa Mcdonald MD [address] [place], [place] [phone] Social History Tobacco Use Types Packs/Day Years [...] Description 06/29/2025 9:00 AM EDT Office Visit [facility] OPTOMETRY [address] [place] [address] Everett, Holly, OD [address] [place] [address] 07/13/2025 8:45 AM EDT Office Visit [facility] ADULT DENTAL [address] [place] [address] Yuliet, Oanh [address] [place] [address] documented as of this encounter Visit Diagnoses Not on filedocumented in this encounter Additional Health Concerns Assessment Noted Time PHQ-9 Depression Total Score: 8 04/22/19 25 9:16 AM EST documented as of this encounter Care Teams Clinic Md Associate Relationship Specialty Start Date End Date Raissa Mcdonald MD [address] [place] [address] PCP - General Family Medicine 03/19/20 documented as of this encounter
--- OUTSIDE RECORDS SUMMARY | 2025-02-23 07:44 | XMS_ITS | Encounter Summary ---
Author Organization [employer] Address [address] [place] [address] Care Team Providers Care Stone Gluer Name Role Phone Raissa Mcdonald MD Primary Care Provider [phone] Encounter Details Date Type Department Care Team ([facility] st Contact Info) Description 01/17/2023 Orders Only [facility] MEDICINE [address] [place], [place] [phone] Raissa Mcdonald MD [address] [place], [place] [phone] Dry skin (Primary Dx) Social History Tobacco Use Types Packs/Day Years Used Date Smoking Tobacco: Never Smokeless Tobacco: Never Alcohol Use Standard Drinks/Week Comments Never 0 (1 standard drink = 0.6 oz pur e alcohol) PHQ-2 Answer Date Recorded Patient Health Questionnaire-2 Score 0 10/16/2022 Housing Stability Answer Date Recorded What is your housing situation today? I have jonelleeli stephens 01/16/[address] you li ve. Do you have problems with any of the following? None of the above 01/16/2023 Food Insecurity Answer Date Recorded Within the past 12 months, y ou worried that your food would run out before you got money to buy more: Never True 01/16/2023 Within the past 12 months,th e food you bought just didn't last and you didn't have enough money to get more: Never True 01/2023 Transportation Answer Date Recorded In the past [...] shut off services in your home? No 01/16/2023 Depression Answer Date Recorded Patient Health Questionnaire-2 [...] Description 06/29/2025 9:00 AM EDT Office Visit [facility] [address] [place] [address] Everett, Holly, OD [address] [place] [address] 07/13/2025 8:45 AM EDT Office Visit [facility] ADULT DENTAL [address] [place] [address] Yuliet, Oanh [address] [place] [address] documented as of this encounter Visit Diagnoses Diagnosis Dry skin- Primary Other symptoms involving skin and integumentary tissues documented in this encounter Care Teams Stone Gluer Relationship Specialty Start Date End Date Raissa Mcdonald MD [address] [place] [address] PCP - General Family Medicine 03/19/20 documented as of this encounter
--- OUTSIDE RECORDS SUMMARY | 2025-02-23 07:45 | XMS_ITS | Encounter Summary ---
Author Organization [employer] Address [address] [place] [address] 7 [place] [address] Care Team Providers Care Application Infrastructure Engineer Name Role Phone Raissa Mcdonald MD Primary Care Provider [phone] Reason for Visit * Reason Onset Date Comments Nurse Triage 08/18/2024 Encounter Details Date Type Department Care Team ([facility] st Contact Info) Description 08/18/2024 Telephone [facility] MEDICINE [address] [place], [place] [phone] Raissa Mcdonald MD [address] [place], [place] [phone] Nurse Triage Social History Tobacco Use Types Packs/Day Years [...] the past 12 months, has t he [employer], oil or water [email or web address] threatened to shut off services in your home? No 01/22/2023 Depression Answer Date Recorded Patient Health Questionnaire-2 Score 3 04/22/2024 Comments No Sex and Gender Information Value Date Recorded Sex Assigned at Female 02/06/2022 10:30 AM EDT Legal Sex Female 10:30 AM EDT Gender Identity Female 02/06/2022 10:30 AM EDT Sexual Orientation Straight 02/06/2022 10 :30 AM EDT documented as of this encounter Miscellaneous Notes * Telephone Encounter - Valentina Mota RN - 08/18/2024 11:43 AM EDT Triage call with [facility] [place] [id number] Pt reports allergy symptoms from being outside yesterday. Pt has removed pollens with a shower thismorning. Pt reports BP has been high 169/119 at times. BP at time of call with Pt using machine. 185/96. Pt has not taken losartan this AM and hasn't eaten or drank liquids. Pt reports getting up to get children to school and coming back home to sleep. Pt is advised to take BP med and drink/eat something before resting. Pt agrees. ASK apt with Dr. Biswas 08/19/24 1115am. Pt agrees with this disposition. Insurance is verified as active prior to booking. Protocol Used: Blood Pressure - High (Adult) Protocol-Based Disposition: See in Office or Video Visit within 3 Days Video visit not offered Positive Triage Question: * Systolic BP >= 160 OR Diastolic >= 100 * All higher-acuity triage questions were negative Care Advice Discussed: * Reassurance and Education - BP Under 130 / 80 and Taking BP Meds * High Blood Pressure * High Blood Pressure - Lifestyle Changes * How to Check Your Blood Pressure? * Reasons To Call Back - Headache, blurred vision, difficulty talking, or difficulty walking occurs - Chest pain or difficulty breathing occurs - You want to go into the office for a blood pressure check - You become worse * Telephone Encounter - Lai Ciro - 08/18/2024 11:16 AM EDT Symptom: High Blood Pressure - Caller Reports Outcome: Schedule an urgent appointment (within 1 hour) or talk to a nurse or provider soon Reason: Getting worse Please contact pt at [phone]. (American Speaker) documented in this encounter Plan of Treatment Upcoming Encounters Date Type Department Care Team (Late st Contact Info) Description 06/29/2025 9:00 AM EDT Office Visit [facility] OPTOMETRY [address] [place] [address] Holly Floyd, OD [address] [place] [address] 07/13/2025 8:45 AM EDT Office Visit [facility] ADULT DENTAL [address] [place] [address] Yuliet, Oanh [address] [place] [address] documented as of this encounter Visit Diagnoses Not on filedocumented in this encounter Additional Health Concerns Assessment Noted Time PHQ-9 Depression Total Score: 8 04/22/19 25 9:16 AM EST documented as of this encounter Care Teams Application Infrastructure Engineer Relationship Specialty Start Date End Date Raissa Mcdonald MD [address] [place] [address] PCP - General Family Medicine 03/19/20 documented as of this encounter
--- OUTSIDE RECORDS SUMMARY | 2025-02-23 07:45 | XMS_ITS | Encounter Summary ---
Author Organization [employer] Address [address] [place] [address] [address] [place] [address] Care Team Providers Care Student Support Advisor Name Role Phone Raissa Mcdonald MD Primary Care Provider [phone] Reason for Visit * Reason Comments Med Refill Encounter Details Date Type Department Care Team ([facility] Contact Info) Description 06/23/2022 Refill [facility] MEDICINE [address] [place], [place] [phone] Raissa Mcdonald MD [address] [place], [place] [phone] Essential hypertension (Primary Dx) Social History Tobacco Use Types Packs/Day Years Used Date Smoking Tobacco: Never Smokeless Tobacco: Never Alcohol Use Standard Drinks/Week Comments Never 0 (1 standard drink = 0.6 oz pur e alcohol) Comments Unknown Sex and Gender Information Value Date Recorded Sex Assigned at Female 02/06/2022 10:30 AM EDT Legal Sex Female 10:30 AM EDT Gender Identity Female 02/06/2022 10:30 AM EDT Sexual Orientation Straight 02/06/2022 10 :30 AM EDT COVID-19 Exposure Response Date Recorded In the last 10 days, have yo u been in contact with someone who was confirmed or suspected to have Coronavirus/COVID-19? No / Unsure 06/08/2022 11:09 AM EST documented as of this encounter Plan of Treatment Upcoming Encounters Date Type Department Care Team (Late Contact Info) Description 06/29/2025 9:00 AM EDT Office Visit [facility] OPTOMETRY [address] [place], [place] [phone] Holly Floyd, OD [address] [place] [address] 07/13/2025 8:45 AM EDT Office Visit [facility] ADULT DENTAL [address] [place], [place] [phone] Chuckie Horvatharis [address] [place] [address] documented as of this encounter Visit Diagnoses Diagnosis Essential hypertension- Primary Unspecified essential hypertension documented in this encounter Care Teams Student Support Advisor Relationship Specialty Start Date End Date Raissa Mcdonald MD [address] [place] [address] PCP - General Family Medicine 03/19/20 documented as of this encounter
--- OUTSIDE RECORDS SUMMARY | 2025-02-23 07:45 | XMS_ITS | Encounter Summary ---
Author Organization [employer] Address [address] [place] [address] [address] [place] [address] Care Team Providers Care Program Writer Name Role Phone Raissa Mcdonald MD Primary Care Provider [phone] Reason for Visit * Reason Comments Med Refill Encounter Details Date Type Department Care Team (Late st Contact Info) Description 01/03/2025 Refill [facility] MEDICINE [address] [place], [place] [phone] Raissa Mcdonald MD [address] [place], [place] [phone] Social History Tobacco Use Types Packs/Day Years [...] Description 06/29/2025 9:00 AM EDT Office Visit [facility] OPTOMETRY [address] [place] [address] Everett, Holly, OD [address] [place] [address] 07/13/2025 8:45 AM EDT Office Visit [facility] ADULT DENTAL [address] [place] [address] Yuliet, Oanh [address] [place] [address] documented as of this encounter Visit Diagnoses Not on filedocumented in this encounter Additional Health Concerns Assessment Noted Time PHQ-9 Depression Total Score: 8 04/22/19 25 9:16 AM EST documented as of this encounter Care Teams Program Writer Relationship Specialty Start Date End Date Raissa Mcdonald MD [address] [place] [address] PCP - General Family Medicine 03/19/20 documented as of this encounter
--- OUTSIDE RECORDS SUMMARY | 2025-02-23 07:45 | XMS_ITS | Encounter Summary ---
Author Organization [employer] Address [address] [place] [address] [address] [place] [address] Care Team Providers Care Anthropology Instructor Name Role Phone Raissa Mcdonald MD Primary Care Provider [phone] Reason for Visit * Reason Comments Med Change Request Encounter Details Date Type Department Care Team (Late st Contact Info) Description 10/16/2022 Refill [facility] MEDICINE [address] [place], [place] [phone] Raissa Mcdonald MD [address] [place], [place] [phone] Essential hypertension Social History Tobacco Use Types Packs/Day Years Used Date Smoking Tobacco: Never Smokeless Tobacco: Never Alcohol Use Standard Drinks/Week Comments Never 0 (1 standard drink = 0.6 oz pur e alcohol) PHQ-2 Answer Date Recorded Patient Health Questionnaire-2 Score 0 10/16/2022 Depression Answer Date Recorded Patient Health Questionnaire-2 Score 0 10/16/2022 Comments Unknown Sex and Gender Information Value [...] suspected to have Coronavirus/COVID-19? No / Unsure 10/16/2022 9:07 AM EDT documented as of this encounter Functional Status * Over the past 2 weeks, how often have you been bothered by any of the following problems? Question Answer Date of Assessment Author Little interest or pleasure in doing things Not at all 10/16/2022 9:28 AM EDT Kim Lara [place] Feeling down, depressed, or hopeless Not at all 10/16/2022 9:28 AM EDT Kim Lara MA Patient Health Questionnaire-2 Score 0 10/16/2022 9:28 AM EDT Sindy Lara [place] documented as of this encounter Plan of Treatment Upcoming Encounters Date Type Department Care Team (Late st Contact Info) Description 06/29/2025 9:00 AM EDT Office Visit [facility] OPTOMETRY [address] [place] [address] EverettOmar meyern, OD [address] [place] [address] 07/13/2025 8:45 AM EDT Office Visit [facility] ADULT DENTAL [address] [place] [address] Yuliet Oanh [address] [place] [address] documented as of this encounter Visit Diagnoses Diagnosis Essential hypertension Unspecified essential hypertension documented in this encounter Care Teams Anthropology Instructor Relationship Specialty Start Date End Date Raissa Mcdonald MD [address] [place] [address] PCP - General Family Medicine 03/19/20 documented as of this encounter
--- OUTSIDE RECORDS SUMMARY | 2025-02-23 07:46 | XMS_ITS | Clinical Summary ---
Author Organization [employer] Address [address] [place] [address] [address] [place] [address] Care Team Providers Care Focuser Name Role Phone Raissa Mcdonald MD Primary Care Provider [phone] Allergies No known active allergies Medications fluticasone (Flonase Allergy Relief) 50 MCG/ACT nasal sprayIndication s:Allergic rhinitis, unspecified seasonality, unspecified trigger spray 1 - 2 spray by intranasal route every day in each nostril as needed 48 g 023 Active Additional Information Patient not taking.Reported on 07/08/2024 Colloidal Oatmeal 1 % cream apply twice daily over affecetd areas 016 Active Levonorgestrel 20 MCG/DAY intrauterine device 52 mg. 020 Active topiramate 50 MG tablet Take 1 tablet by mouth at bedtime. 023 Active polyvinyl alcohol (Liquifilm Tears) 1.4 % ophthalmic solution INSTILL 1 DROP IN EACH EYE 3 TO 4 TIMES PER DAY 15 mL 11 023 Active white petrolatum gel Apply topically if needed for dry skin. 300 g 3 023 Active Magnesium 400 MG capsule Take 1 tablet by mouth in the morning. 90 capsule 3 023 Active Fiber-Lax 625 MG tablet TAKE 1 TABLET BY MOUTH EVERY DAY WITH A FULL GLASS OF WATER 024 Active Polyethylene Glycol 3350 (PEG 3350) 17 GM/SCOOP powder MIX 238 GRAMS IN WATER AND TAKE BEFORE COLONOSCOPY DIRECTED BY [facility] gi dept 024 Active senna (Senokot) 8.6 MG tablet TAKE 2 TABLETS BY MOUTH EVERY DAY AT BEDTIME FOR CONSTIPATION 07/31/2 024 Active potassium chloride CR (Klor-Con) 10 MEQ ER tablet Take 2 tabs PO BID x3 days then 2 tabs daily. Do not crush, chew, or split. 60 tablet Active gabapentin (Neurontin) 100 MG capsule Take 1 capsule (100 mg) by mouth at bedtime. 90 capsule 3 025 2025 Active D3 Super Strength 50 MCG (2000 UT) capsuleIndicati ons:Vitamin D deficiency TAKE 1 CAPSULE BY MOUTH EVERY MORNING 90 capsule 3 Active ibuprofen 600 MG tablet TAKE 1 TABLET BY MOUTH EVERY 8 HOURS NEEDED FOR MILD PAIN 60 tablet 1 Active Blood Pressure Monitoring (Blood Pressure Cuff) miscIndications :Primary hypertension 1 each Once daily. 1 each Active amLODIPine (Norvasc) 2.5 MG tabletIndicatio ns:Primary hypertension Take 1 tablet (2.5 mg) by mouth Once per day. 30 tablet 2 025 2025 Active propranolol (Inderal) 80 MG tablet TAKE 1 TABLET BY MOUTH TWICE DAILY IN THE MORNING AND IN THE EVENING 180 tablet 3 Active melatonin 3 MG tablet TAKE 3 TABLETS BY MOUTH EVERY DAY AT BEDTIME NEEDED 90 tablet 3 Active Bisacodyl EC 5 MG EC tablet take 2 tablets by mouth every day at bedtime Active Citrucel 500 MG tablet TAKE 1 TABLET BY MOUTH EVERY DAY WITH A FULL GLASS OF WATER Active losartan (Cozaar) 50 MG tablet TAKE 1 TABLET BY MOUTH EVERYDAY AT NOON Active oxybutynin XL (Ditropan-XL) 15 MG 24 hr tablet TAKE 1 TABLET BY MOUTH EVERYDAY AT NOON Active Calcium + Vitamin D3 600-5 MG-MCG tablet TAKE 1 TABLET BY MOUTH EVERY MORNING 90 tablet 3 Active magnesium oxide (Mag-Ox) 400 MG tablet TAKE 1 TABLET BY MOUTH EVERY MORNING 90 tablet 3 Active spironolactone (Aldactone) 50 MG tablet Take 1 tablet (50 mg) by mouth Once per day. 90 tablet 3 Active magnesium oxide (Mag-Ox) 400 MG tablet TAKE 1 TABLET BY MOUTH EVERY MORNING 90 tablet 3 024 2024 Discontinued Calcium + Vitamin D3 600-5 MG-MCG tablet TAKE 1 TABLET BY MOUTH EVERY MORNING 90 tablet 3 024 2024 Discontinued spironolactone (Aldactone) 50 MG tablet TAKE 1 TABLET BY MOUTH EVERYDAY AT NOON 025 2024 Discontinued(R eorder (will not trigger notification to Pharmacy)) Active Problems Problem Noted Date Diagnosed Date Hypokalemia 08/19/2024 Assessment & Plan (08/19/2024 4:04 PM EDT): Blood workup normal, I will recheck her potassium today and refer her to nephrology Daytime somnolence 04/23/2024 Overview (04/23/2024): Hospital sleep study non diagnostic due to lack of data/time sleeping Assessment & Plan (04/23/2024 10:26 AM EST): MA called [facility] today to confirm pt's home sleep study appointment, she missed it on 04/15/24, rescheduled to 05/2024 Cubital tunnel syndrome on left 08/20/2023 Severe obesity (CMS/HCC) 08/17/2023 Chronic midline thoracic back pain 02/19/2023 Assessment & Plan (02/19/2023 12:57 PM EST): Not currently painful continue to monitor Ibuprofen prn stretching Urinary incontinence 10/16/2022 Primary hypertension 10/16/2022 Assessment & Plan (01/14/2025 11:44 AM EDT): Reminded the risks of not taking BP meds every day or monitoring blood pressure a shannon Assessment & Plan (08/19/2024 4:04 PM EDT): Today blood pressure was elevated 153/80 repeat it was 143/80, I advised low- sodium diet and weight reduction I prescribed for patient blood pressure machine with cuff on her arm Follow up with the Nurse for blood pressure check in 2 weeks. Continue with a low sodium diet and regular exercise as tolerated. For BP < or = to 139/89 (or 129/79 for diabetic patients) continue current medication regimen and follow up with PCP in as scheduled . For BP > or = to 140/90 (or 130/80 for diabetic patients) increase Amlodipine to 5 mg once a day Assessment & Plan (04/23/2024 10:24 AM EST): Maintenance: Increase Losartan to 100mg daily, monitor K in 2-4 weeks BMP: Lab Results Component Value Date CREATININE 0.74 04/11/2024 K 3.3 04/11/2024 Lipid Panel: today ASCVD Risk: 2% EKG: Obtain baseline at f/u - Aerobic exercise to reduce BP. Initial goal of 30 min walk 3-5x/week. Increase as tolerated. - low-sodium diet (goal: <2g/day) and heart healthy diet such as DASH to reduce BP and prevent ASCVD. - Home BP monitoring 1-2 x day with goal of <140/90. - Seek immediate medical attention for chest pain, palpitations, SOB, syncope, or sudden changes in mental status. - Do not change or discontinue current prescriptions without first consulting health care provider Assessment & Plan (08/21/2023 2:11 PM EDT): Maintenance: Losaratan 50mg, at goal when on medication, has no taken it yet this morning BMP: Lab Results Component Value Date CREATININE 0.56 08/20/2023 K 3.3 08/20/2023 Lipid Panel: today ASCVD Risk: 1.3% EKG: Obtain baseline at f/u - Aerobic exercise to reduce BP. Initial goal of 30 min walk 3-5x/week. Increase as tolerated. - low-sodium diet (goal: <2g/day) and heart healthy diet such as DASH to reduce BP and prevent ASCVD. - Home BP monitoring 1-2 x day with goal of <140/90. - Seek immediate medical attention for chest pain, palpitations, SOB, syncope, or sudden changes in mental status. - Do not change or discontinue current prescriptions without first consulting health care provider Assessment & Plan (02/19/2023 12:59 PM EST): Maintenance: Losaratan 50mg BMP: Lab Results Component Value Date CREATININE 0.74 10/16/2022 K 3.1 (L) 10/16/2022 Lipid Panel: last in 2019 ASCVD Risk: Calculate pending updated labs EKG: Obtain baseline at f/u - Aerobic exercise to reduce BP. Initial goal of 30 min walk 3-5x/week. Increase as tolerated. - low-sodium diet (goal: <2g/day) and heart healthy diet such as DASH to reduce BP and prevent ASCVD. - Home BP monitoring 1-2 x day with goal of <140/90. - Seek immediate medical attention for chest pain, palpitations, SOB, syncope, or sudden changes in mental status. - Do not change or discontinue current prescriptions without first consulting health care provider Assessment & Plan (10/16/2022 10:15 AM EDT): Maintenance: Losaratan 25mg, increase to 50mg today BMP: due Lipid Panel: last in 2019 ASCVD Risk: Calculate pending updated labs EKG: Obtain baseline at f/u - Aerobic exercise to reduce BP. Initial goal of 30 min walk 3-5x/week. Increase as tolerated. - low-sodium diet (goal: <2g/day) and heart healthy diet such as DASH to reduce BP and prevent ASCVD. - Home BP monitoring 1-2 x day with goal of <140/90. - Seek immediate medical attention for chest pain, palpitations, SOB, syncope, or sudden changes in mental status. - Do not change or discontinue current prescriptions without first consulting health care provider Insulin resistance 10/16/2022 Assessment & Plan (10/16/2022 10:15 AM EDT): Check A1C today Dental calculus 07/20/2022 Stress incontinence of urine 05/25/2022 Assessment & Plan (01/14/2025 11:44 AM EDT): DME for pads please Assessment & Plan (10/16/2022 10:14 AM EDT): Continue Ditropan daily Kegels Water restriction before bed Assessment & Plan (05/25/2022 11:07 AM EST): Pt will be referred to previous providers. Vitamin D deficiency 08/16/2017 Migraine without aura and wi thout status migrainosus, not intractable 08/16/2017 Assessment & Plan (08/19/2024 4:04 PM EDT): I advise to avoid migraine triggers like red wine, chocolate, cheese, strong perfumes I will prescribe Fioricet for her headaches Breast pain 01/19/2016 Resolved Problems Problem Noted Date Diagnosed Date Resolved Date Subacute pansinusitis 05/04/20222024 Assessment & Plan (05/04/2022 12:58 PM EST): Use Augmentin x 4 days + Flonase + loratadine. Recommended nasal saline PRN, increase PO fluids and rest. Out of work for 4 days. FU results of COVID and influenza PCR. Encounters Date Type Department Care Team Description 02/12/2025 Refill [facility] [address] [place] [phone] Raissa Mcdonald MD 02/12/2025 Telephone [facility] [address] [place] [phone] Raissa Mcdonald MD 02/05/2025 Refill [facility] [address] [place] [phone] Raissa Mcdonald MD 01/23/2025 Telephone [facility] [address] [place] [phone] Raissa Mcdonald MD Durable Medical Equipment (DME Order: Incontinence Liner) 01/09/2025 3:30 PM EDT Office Visit [facility] [address] [place] [address] Raissa Mcdonald MD Screening mammogram for breast cancer (Primary Dx); Primary hypertension; Blurry vision; Encounter for immunization; Severe obesity (CMS/HCC) (HCC); Stress incontinence of urine; Hypokalemia; Migraine without aura and without status migrainosus, not intractable 01/09/2025 Travel 01/08/2025 8:45 AM EDT Office Visit [facility] ADULT DENTAL [address] [place] [phone] Oanh Horvath Dental calculus (Primary Dx); Missing teeth, acquired 01/08/2025 Telephone [facility] [address] [place] [address] Raissa Mcdonald MD chart prep 01/07/2025 Travel 01/07/2025 Refill [facility] [address] [place] [address] Raissa Mcdonald MD 01/03/2025 Refill [facility] [address] [place] [address] Raissa Mcdonald MD 01/02/2025 Travel 01/01/2025 Patient Outreach [facility] [address] [place] [address] Raissa Mcdonald MD Pre-visit Planning ((Unable to reach for PVP screening, LVM) to be completed in office ) from Last 3 Months Immunizations Immunization Administration Dates Next Due Influenza injectable quadriv alent IIV4 with preservative 12/26/2017,01/19/2016 Influenza injectable quadriv alent preservative free 02/19/2023,03/14/2021,01/13/2019,2016 Influenza, seasonal, injecta ble, preservative free 01/09/2025 Tdap 09/22/2020,03/07/2016 Social History Tobacco Use Types Packs/Day Years Used Date Smoking Tobacco: Never Smokeless Tobacco: Never Tobacco Cessation:Counseling Given: Not Answered Alcohol Use Standard Drinks/Week Comments Never 0 [...] Orientation Straight 02/06/2022 10 :30 AM EDT Last Filed Vital Signs Vital Sign Reading Time Taken Comments Blood Pressure 168/100 01/09/2025 3:43 PM EDT Pulse 68 01/09/2025 3:43 PM EDT Temperature 36.4 C (97.6 F) 01/09/2025 3:43 PM EDT Respiratory Rate 20 01/09/2025 3:43 PM EDT Oxygen Saturation 97% 09/04/2024 9:20 AM EDT Inhaled Oxygen Concentration - - Weight 110 kg (241 lb 12.8 oz) 01/09/2025 3:43 P M EDT Height 160 cm (5' 3 ) 01/09/2025 3:43 PM EDT Body Mass Index 42.83 01/09/2025 3:43 PM EDT Plan of Treatment Upcoming Encounters Date Type Department Care Team (Late st Contact Info) Description 06/29/2025 9:00 AM EDT Office Visit [facility] OPTOMETRY [address] [place] [address] [place], Holly, OD [address] [place], [place] [phone] 07/13/2025 8:45 AM EDT Office Visit [facility] [address] [facility] [place] [address] Oanh Horvath [address] [facility] [place] [address] Health Maintenance Due Date Last Done Comments CT Colonography 1978 FIT DNA/Cologuard 1978 FIT 1978 FOBT 1978 Sigmoidoscopy 1978 Family Planning (PISQ) 1993 Hepatitis B Vaccines (1 of 3 - 19+ 3-dose series) 1997 Mammogram 02/18/2021 02/18/2019 SDOH Screening 08/08/2024 08/09/2023 COVID-19 Vaccine ( season) 2024 01/07/2021, 06/23/2020, 05/29/2020 Dental Oral Exam 01/08/2025 07/08/2024, 01/01/2024 Depression Screening 04/22/2025 04/22/2024, 04/22/19 Alcohol/Substance Use Screening 04/23/2025 04/23/2024 Dental X-Ray: Bitewings 07/09/2025 07/09/19, 01/01/2024, 12/14/2023 Dental Prophylaxis 07/10/2025 01/08/2025, 0 07/08/2024, 01/01/2024, Additional history exists Disability Screening 01/07/2026 01/07/2025 Tobacco Screening 01/09/2026 01/09/2025 Cervical Cancer Screening 10/31/2026 HPV/Cotest 10/31/2026 10/31/2021 Pap Smear 10/31/2026 10/31/2021 Dental X-Ray: Full Mouth 01/01/2027 01/01/2024 Zoster Vaccines (1 of 2) 2028 Colonoscopy 03/09/2029 Colorectal Cancer Screening 03/09/2029 Lipid Panel 04/11/2029 04/11/2024, 08/20/2023 DTaP/Tdap/Td Vaccines (3 - Td or Tdap) 09/22/2030 09/22/2020, 03/07/2016 RSV Patients and Patients Aged 60 years or older (1 - 1-dose 75+ series) 2053 Hepatitis C Screening Completed 06/08/2022 HIV Screening Completed 04/11/2024, 06/08/2022 Influenza Vaccine Completed 01/09/2025, , 03/14/2021, Additional history exists HIB Vaccines Aged Out No longer eligi ble based on patient's age to complete this topic HPV Vaccines Aged Out No longer eligi ble based on patient's age to complete this topic Hepatitis A Vaccines Aged Out No long er eligible based on patient's age to complete this topic IPV Vaccines Aged Out No longer eligi ble based on patient's age to complete this topic Meningococcal B Vaccine Aged Out No l onger eligible based on patient's age to complete this topic Meningococcal Vaccine Aged Out No delphine shaquille eligible based on patient's age to complete this topic Pneumococcal Vaccine: Pediatrics (0 to 5 Years) and At-Risk Patients (6 to 49) Years Aged Out No longer eligible based on patient's age to complete this topic RSV under 20 months Aged Out No longe r eligible based on patient's age to complete this topic Rotavirus Vaccines Aged Out No longer eligible based on patient's age to complete this topic Procedures Procedure Name Priority Date/Time Associated Diagnosis Comments CASE PRESENTATION, DETAILED AND EXTENSIVE TREATMENT PLANNING Routine 01/08/2025 8:45 AM EDT Dental calculus Missing teeth, acquired ORAL HYGIENE INSTRUCTIONS Routine 01/08/2025 8:45 AM EDT Dental calculus Missing teeth, acquired PROPHYLAXIS - ADULT Routine 01/08/2025 8 :45 AM EDT Dental calculus BITEWINGS - 2 RADIOGRAPHIC IMAGES Routine 07/08/2024 8:00 AM EDT PERIODIC ORAL EVALUATION - ESTABLISHED PATIENT Routine 07/08/2024 8:00 AM EDT HIV 1/2 ANTIGEN/ANTIBODY, FOURTH GENERATION W/RFL Routine 04/11/2024 9:06 AM EST Other polyneuropathy LIPID PANEL, STANDARD Routine 04/11/2024 9:06 AM EST Other polyneuropathy INTRAORAL - COMPLETE SERIES OF RADIOGRAPHIC IMAGES Routine 01/01/2024 9:00 AM EDT HEPATITIS C AB W/REFL TO HCV RNA, QN, PCR Routine 06/08/2022 12:26 PM EST Routine screening for STI (sexually transmitted infection) THINPREP IMAGING PAP AND HPV MRNA E6/E7 WITH REFLEX TO HPV 16,18/45 Routine 10/31/2021 11:10 AM EDT BI MAMMOGRAM SCREENING BILATERAL Routine 02/18/2019 7:51 AM EST from Last 3 Months or Most Recently Relevant to Health Maintenance Results * HIV-1/2 Antigen and Antibodies, Fourth Generation, with Reflexes (04/11/2024 9:06 AM EST) HIV AB/AG Nonreactive Nonreactive [facility] Comment:HIV-1 p24 Ag and/or HIV-1/HIV-2 Ab not detected.A test result that is nonreactive does not exclude thepossibility of exposure to or infection with HIV-1 and/orHIV-2. Nonreactive results in this assay for individualswith prior exposure to HIV-1 and/or HIV-2 may be due toantigen and antibody levels that are below the limit ofdetection of this assay.[employer] HIV Ag/Ab Combo assay result andsupplemental assay results should be interpreted inconjunction with the patient's clinical presentation,history and other laboratory results. If the results areinconsistent with clinical evidence, additional testing issuggested to confirm the result. Blood Venous blood specimen / Unknown 04/11/2024 9:06 AM EST 04/11/2024 11:03 AM EST us Donna Quezada DO LAB BLOOD ORDERABLES Final R esult [facility] [address] [place] [phone] * (ABNORMAL) Lipid Panel, Standard (04/11/2024 9:06 AM EST) Triglycerides 135 <150 mg/dL [facility] Comment:Desirable Triglyceri de: less than 150 mg/dLBorderline High Triglyceride 150-199 mg/dLHigh Triglyceride: 200-499 mg/dLVery High Triglyceride: greater than or equal to 5OO mg/dL Cholesterol 174 <200 mg/dL [facility] Comment:Desirable Cholestero l: less than 200 mg/dLBorderline High Cholesterol: 200-239 mg/dLHigh Cholesterol: greater than 239 mg/dL LDL Cholesterol Calculated 111(H) <100 mg/dL [facility] Comment:Desirable LDL: less than 100 mg/dLNear Optimal/Above Optimal LDL: 110- 129 mg/dLBorderline High LDL: 130-159 mg/dLHigh LDL: 160-189 mg/dLVery High LDL: greater than or equal to 190 mg/dL HDL Cholesterol 36(L) >40 mg/dL [facility] Comment:Desirable HDL: great er than 40 mg/dL Note: This HDL assay may give artificially low results in patients with liver disease. Blood Venous blood specimen / Unknown 04/11/2024 9:06 AM EST 04/11/2024 11:03 AM EST us Donna Quezada DO LAB BLOOD ORDERABLES Final R esult [facility] [address] [place] [phone] * Hepatitis C Antibody with Reflex to HCV, RNA, Quantitative, Real-Time PCR (06/08/2022 12:26 PM EST) Hepatitis C Antibody NON-REACT PURA NON-REACT PURA [facility] Index 0.06 <1.00 [facility] Comment: HCV antibody was non-reactive. There is no laboratory evidence of HCV infection. In most cases, no further action is required. However, if recent HCV exposure is suspected, a test for HCV RNA (test code 30862) is suggested. For additional information please refer to http://education.[employer]/faq/UKC27z3 (This link is being provided for informational/ educational purposes only.) Blood Venous blood specimen / Unknown 06/08/2022 12:26 PM EST 06/08/2022 12:26 PM EST Narrative [facility] - 06/09/2022 8:52 PM EST FASTING:YES FASTING: YES Lillie Menendez APERTURE MASK ETCHER LAB BLOOD ORDERABLES Final Result [facility] [address] [place] [address], [facility], [place] [phone] [facility] [address] [facility], ([address]) [place] [address] * THINPREP TIS PAP AND HPV mRNA E6/E7 WITH REFLEX TO HPV 16,18/45 (10/31/2021 11:10 AM EDT) Clinical Information: None given [facility] COMMENT SEE COMMENT [facility] Comment: EXPLANATORY NOTE: The Pap is a screening test for cervical cancer. It is not a diagnostic test and is subject to false negative and false positive results. It is most reliable when a satisfactory sample, regularly obtained, is submitted with relevant clinical findings and history, and when the Pap result is evaluated along with historic and current clinical information. COMMENT: This Pap test has been evaluated with computer assisted technology. [facility] Cytotechnologis t: SEE COMMENT [facility] Comment: SXA, CT(ASCP) CT screening location: [address] [address] HPV nRNA E6/E7 Not Detected Not Detected [facility] Comment: Methodology: News Production Assistant-Mediated Amplification This assay detects E6/E7 viral messenger RNA (mRNA) from 14 high-risk HPV types (16,18,31,33,35,39,45,51,52,56,58,59,66,68). Cervical sources are required for HPV testing. If a vaginal source from a patient who has had a total hysterectomy with removal of cervix was submitted, please contact the testing laboratory for alternative testing options. For additional information, please refer to http://education.[employer]/faq/CHG027e8 (This link if provided for information/ educational purposes only.) Interpretation/ Result: Negative for intraepithelial lesion or malignancy. [facility] LMP: AMENORRHEIA, IUD [facility] Prev. BX: NONE GIVEN [facility] Prev. PAP: -2016, NIL/NEG [facility] SOURCE: None given [facility] Statement Of Adequacy: SEE COMMENT [facility] Comment: Satisfactory for evaluation. Endocervical/transformation zone component present. 10/31/2021 11:1 0 AM EDT us Ericka Flores CNM LAB PATHOLOGY ORDERABLES Final Result [facility] [address] * 3D DIGITAL LAVONNE SCR MAMMO 1 (02/18/2019 7:51 AM EST) Anatomical Region Laterality Modality Breast Bilateral Mammography 02/18/2019 7:51 AM EST Narrative 02/18/2019 7:52 AM EST Refer to the Notes tab for result details [facility] Procedure: 3D DIGITAL LAVONNE SCR MAMMO 1 Procedure Note Provider, MD Delphine - 07/01/2022 Refer to the Notes tab for result details [facility] Procedure: 3D DIGITAL LAVONNE SCR MAMMO 1 Historical Provider IMG BI PROCEDURES Final R esult from Last 3 Months or Most Recently Relevant to Health Maintenance Insurance [facility] C3 HSN PARTIAL DENTAL - HSN PARTIAL (MEDICAID) Care Teams Focuser Relationship Specialty Start Date End Date Raissa Mcdonald MD [address] [place] [phone] PCP - General Family Medicine 03/19/20
--- OUTSIDE RECORDS SUMMARY | 2025-02-23 07:46 | XMS_ITS | Encounter Summary ---
Author Organization [employer] Address [address] [place] [address] 7 [place] [address] Care Team Providers Care Student Success Counselor Name Role Phone Raissa Mcdonald MD Primary Care Provider [phone] Encounter Details Date Type Department Care Team (Latest Contact Info) Description 12/26/2021 Abstract [facility] CONVERSIONS Dental, Provider, DDS Social History Tobacco Use Types Packs/Day Years Used Date Smoking Tobacco: Never Assessed Comments Unknown Sex and Gender Information Value [...] Description 06/29/2025 9:00 AM EDT Office Visit [facility] OPTOMETRY [address] [place] [address] EverettHolly meyer, OD [address] [place] [address] 07/13/2025 8:45 AM EDT Office Visit [facility] ADULT DENTAL [address] [place] [address] Yuliet, Oanh [address] [place] [address] documented as of this encounter Visit Diagnoses Not on filedocumented in this encounter Care Teams Student Success Counselor Relationship Specialty Start Date End Date Raissa Mcdonald MD [address] [place] [address] PCP - General Family Medicine 03/19/20 documented as of this encounter
--- OUTSIDE RECORDS SUMMARY | 2025-02-23 07:46 | XMS_ITS | Encounter Summary ---
Author Organization [employer] Address [address] [place] [address] 7t [place] [address] Care Team Providers Care Regulatory Compliance Specialist Name Role Phone Raissa Mcdonald MD Primary Care Provider Reason for Referral * Hospital - Outpatient (Routine) - Closed Specialty Diagnoses / Procedures Referred By Liss gamble Referred To Contact Diagnoses Daytime somnolence Procedures Polysomnography aRissa Mcdonald MD [address] [place] [address] Phone: tel: fax: [address] Phone: tel: fax: Referral ID Status Reason Start Date Expiration Date Visits Re quested Visits Authorized [id number] Closed 03/03/2024 03/03/2025 1 1 Encounter Details Date Type Department Care Team (Late st Contact Info) Description 03/03/2024 Orders Only [facility] MEDICINE [address] [place] [address] [phone] Raissa Mcdonald MD [address] [place] [address] Daytime somnolence (Primary Dx) Social History Tobacco Use Types [...] Description 06/29/2025 9:00 AM EDT Office Visit [facility] OPTOMETRY [address] [place] [address] Everett, Holly, OD 230 [place] [address] 07/13/2025 8:45 AM EDT Office Visit [facility] ADULT DENTAL 230 [place] [address] Yuliet, Oanh [address] [place] [address] Scheduled Orders Name Type Priority Associated Diagnoses Orde r Schedule Polysomnography Sleep Center Routine Daytime somnolence Expected: 03/03/2024 (Approximate), Expires: 03/03/2025 documented as of this encounter Visit Diagnoses Diagnosis Daytime somnolence- Primary documented in this encounter Care Teams Regulatory Compliance Specialist Relationship Specialty Start Date End Date Raissa Mcdonald MD [address] [place] [address] PCP - General Family Medicine 03/19/20 documented as of this encounter
--- OUTSIDE RECORDS SUMMARY | 2025-02-23 07:46 | XMS_ITS | Encounter Summary ---
Author Organization [employer] Address [address] [place] [address] 7 [place] [address] Care Team Providers Care Vendor Manager Name Role Phone Raissa Mcdonald MD Primary Care Provider [phone] Encounter Details Date Type Department Care Team (Latest Contact Info) Description 08/30/2020 Abstract [facility] CONVERSIONS Dental, Provider, DDS Social History Tobacco [...] Description 06/29/2025 9:00 AM EDT Office Visit [facility] OPTOMETRY [address] [place] [address] EverettHolly meyer, OD 230 [place] [address] 07/13/2025 8:45 AM EDT Office Visit [facility] ADULT DENTAL [address] [place] [address] Yuliet, Oanh [address] [place] [address] documented as of this encounter Visit Diagnoses Not on filedocumented in this encounter Care Teams Vendor Manager Relationship Specialty Start Date End Date Raissa Mcdonald MD 230 [place] [address] PCP - General Family Medicine 03/19/20 documented as of this encounter
--- OUTSIDE RECORDS SUMMARY | 2025-02-23 07:46 | XMS_ITS | Encounter Summary ---
Author Organization [employer] Address [address] [place] [address] 7 [place] [address] Care Team Providers Care Automatic Fancy Machine Operator Name Role Phone Raissa Mcdonald MD Primary Care Provider [phone] Encounter Details Date Type Department Care Team (Late st Contact Info) Description 03/29/2022 Orders Only [facility] [address] [place] [address] Jessica Munoz LPN Social History Tobacco Use Types Packs/Day Years [...] AM EDT Office Visit [facility] OPTOMETRY [address] [place] [address] EverettHolly meyer, OD 230 [place] [address] 07/13/2025 8:45 AM EDT Office Visit [facility] ADULT DENTAL [address] [place] [address] Yuliet, Oanh [address] [place] [address] documented as of this encounter Visit Diagnoses Not on filedocumented in this encounter Care Teams Automatic Fancy Machine Operator Relationship Specialty Start Date End Date Raissa Mcdonald MD 230 [place] [address] PCP - General Family Medicine 03/19/20 documented as of this encounter
--- OUTSIDE RECORDS SUMMARY | 2025-02-23 07:46 | XMS_ITS | Encounter Summary ---
Author Organization [employer] Address [address] [place] [address] 7 [place] [address] Care Team Providers Care Pastry Cook Apprentice Name Role Phone Raissa Mcdonald MD Primary Care Provider [phone] Encounter Details Date Type Department Care Team (Latest Contact Info) Description 10/23/2018 Abstract [facility] CONVERSIONS Dental, Provider, DDS Social [...] Description 06/29/2025 9:00 AM EDT Office Visit [facility] OPTOMETRY [address] [place] [address] EverettHolly meyer, OD 230 [place] [address] 07/13/2025 8:45 AM EDT Office Visit [facility] ADULT DENTAL 230 [place] [address] Yuliet, Oanh 230 [place] [address] documented as of this encounter Visit Diagnoses Not on filedocumented in this encounter Care Teams Pastry Cook Apprentice Relationship Specialty Start Date End Date Raissa Mcdonald MD 230 [place] [address] PCP - General Family Medicine 03/19/20 documented as of this encounter
[2025-02-23 11:34] LABS: Anion Gap 12 (12-20); Blood Urea Nitrogen 13 mg/dL (9-16); Calcium 8.6 mg/dL (8.4-10.2); Carbon Dioxide 20 mmol/L (22-29); Chloride 110 mmol/L (96-108); Estimated Glomerular Filt Rate > 60; Potassium 3.4 mmol/L (3.3-5.1); Sodium 139 mmol/L (135-145)
== END 2025-02-23 07:21 | disposition home or self-care (01) ==
LOC: HO.10HDL 07:20
PROVIDERS: Visit Provider Internal Medicine Critical Care Medicine
DX: E87.6 Hypokalemia (principal); I10 Essential (primary) hypertension; E66.01 Morbid (severe) obesity due to excess calories; Z68.41 Body mass index [BMI] 40.0-44.9, adult
CPT/HCPCS: 36415; 80048

== ENCOUNTER 2025-02-27 08:45 | Outpatient (AMB) | payer MEDICAID, SELFPAY ==
--- OUTSIDE RECORDS SUMMARY | 2025-02-27 08:49 | XMS_ITS | Encounter Summary ---
Author Organization [employer] Address [address] 7t [place] [address] Care Team Providers Care Oil Well Service Operator Name Role Phone Raissa Mcdonald MD Primary Care Provider [phone] Encounter Details Date Type Department Care Team ([facility] st Contact Info) Description 01/17/2023 Orders Only [facility] MEDICINE [address] [place], [place] [phone] Raissa Mcdonald MD 230 [place], [place] [phone] Dry skin (Primary Dx) Social History Tobacco [...] 06/29/2025 9:00 AM EDT Office Visit [facility] OPTOMETRY [address] [place] [address] Everett, Holly, OD 230 [place] [address] 07/13/2025 8:45 AM EDT Office Visit [facility] ADULT DENTAL [address] [place] [address] Yuliet, Oanh [address] [place] [address] documented as of this encounter Visit Diagnoses Diagnosis Dry skin- Primary Other symptoms involving skin and integumentary tissues documented in this encounter Care Teams Oil Well Service Operator Relationship Specialty Start Date End Date Raissa Mcdonald MD 230 [place] [address] PCP - General Family Medicine 03/19/20 documented as of this encounter
--- OUTSIDE RECORDS SUMMARY | 2025-02-27 08:49 | XMS_ITS | Encounter Summary ---
Author Organization [employer] Address [address] [place] [address] 7 [place] [address] Care Team Providers Care Production Laborer Name Role Phone Raissa Mcdonald MD Primary Care Provider Encounter Details Date Type Department Care Team (Latest Contact Info) Description 08/30/2020 Abstract [facility] CONVERSIONS Dental, Provider, DDS Social History Tobacco [...] 9:00 AM EDT Office Visit [facility] OPTOMETRY [address] [place] [address] EverettHolly meyer, OD 230 [place] [address] 07/13/2025 8:45 AM EDT Office Visit [facility] ADULT DENTAL [address] [place] [address] Yuliet, Oanh [address] [place] [address] documented as of this encounter Visit Diagnoses Not on filedocumented in this encounter Care Teams Production Laborer Relationship Specialty Start Date End Date Raissa Mcdonald MD 230 [place] [address] PCP - General Family Medicine 03/19/20 documented as of this encounter
--- OUTSIDE RECORDS SUMMARY | 2025-02-27 08:49 | XMS_ITS | Encounter Summary ---
Author Organization [employer] Address [address] [facility] 7t [place] [address] Care Team Providers Care Pony Worker Name Role Phone Raissa Mcdonald MD Primary Care Provider [phone] Encounter Details Date Type Department Care Team ([facility] st Contact Info) Description 02/12/2025 Telephone [facility] MEDICINE [address] [place], [place] [phone] Raissa Mcdonald MD [address] [place], [place] [phone] Social History Tobacco Use Types Packs/Day Years [...] Description 06/29/2025 9:00 AM EDT Office Visit [facility] OPTOMETRY [address] [place] [address] Everett, Holly, OD 230 [place] [address] 07/13/2025 8:45 AM EDT Office Visit [facility] ADULT DENTAL 230 [place] [address] Yuliet, Oanh 230 [place] [address] documented as of this encounter Visit Diagnoses Not on filedocumented in this encounter Additional Health Concerns Assessment Noted Time PHQ-9 Depression Total Score: 8 04/22/19 25 9:16 AM EST documented as of this encounter Care Teams Pony Worker Relationship Specialty Start Date End Date Raissa Mcdonald MD 230 [place] [address] PCP - General Family Medicine 03/19/20 documented as of this encounter
--- OUTSIDE RECORDS SUMMARY | 2025-02-27 08:49 | XMS_ITS | Clinical Summary ---
Author Organization [employer] Address [address] [place] [address] 7t [place] [address] Care Team Providers Care Associate Professor Of Biblical Studies Name Role Phone Raissa Mcdonald MD Primary Care Provider [phone] Allergies No known active allergies Medications fluticasone [...] WATER AND TAKE BEFORE COLONOSCOPY DIRECTED [place] [facility] Active senna (Senokot) 8.6 [...] by mouth at bedtime. 90 capsule 3 5 4:06 PM EST 025 2025 Active D3 Super Strength 50 MCG (1999 UT) capsuleIndicati ons:Vitamin D deficiency TAKE 1 [...] BY MOUTH EVERY MORNING 90 tablet 3 5 4:06 PM EST Active magnesium oxide (Mag-Ox) 400 MG tablet TAKE 1 TABLET BY MOUTH EVERY MORNING 90 tablet 3 5 4:06 PM EST Active spironolactone (Aldactone) 50 MG tablet Take 1 tablet (50 mg) by mouth Once per day. 90 tablet 3 5 4:06 PM EST 025 Active magnesium oxide (Mag-Ox) 400 MG tablet [...] Assessment & Plan (04/23/2024 10:26 AM EST): DANIELLE called [facility] today to confirm pt's home sleep study [...] Type Department Care Team Description 02/12/2025 Refill [facility] MEDIC[facility] [address] [place] [address] Raissa Mcdonald MD 02/12/2025 Telephone [facility] [address] [place] [address] Raissa Mcdonald MD 02/05/2025 Refill [facility] [address] [place] [address] Raissa Mcdonald MD 01/23/2025 Telephone [facility] [address] [place] [address] Raissa Mcdonald MD Durable Medical Equipment (DME Order: Incontinence Liner) 01/09/2025 3:30 PM EDT Office Visit [facility] MEDIC[facility] [address] [place] [address] Raissa Mcdonald MD Screening mammogram for breast cancer (Primary Dx); Primary hypertension; Blurry vision; Encounter for immunization; Severe obesity (CMS/HCC) (HCC); Stress incontinence of urine; Hypokalemia; Migraine without aura and without status migrainosus, not intractable 01/09/2025 Travel 01/08/2025 8:45 AM EDT Office Visit [facility] ADULT DENTAL [address] [place] [address] Oanh Horvath Dental calculus (Primary Dx); Missing teeth, acquired 01/08/2025 Telephone [facility] PEDIATR[facility] [address] [place] [address] Raissa Mcdonald MD chart prep 01/07/2025 Travel 01/07/2025 Refill [facility] [address] [place] [address] Raissa Mcdonald MD 01/03/2025 Refill [facility] [address] [place], [place] [phone] Raissa Mcdonald MD 01/02/2025 Travel 01/01/2025 Patient Outreach [facility] [address] [place] [address] Raissa Mcdonald MD Pre-visit Planning ((Unable to [...] Description 06/29/2025 9:00 AM EDT Office Visit [facility] OPTOMETRY [address] [place] [address] EverettHolly meyer, OD 230 [place] [address] 07/13/2025 8:45 AM EDT Office Visit [facility] ADULT DENTAL [address] [place] [address] Yuliet, Oanh [address] [place] [address] Health Maintenance Due Date Last Done Comments [...] Vaccines (1 of 2) 2028 Colonoscopy 03/09/2029 04/07/2024 Colorectal Cancer Screening 03/09/2029 Lipid Panel 04/11/2029 [...] 9:06 AM EST) HIV AB/AG Nonreactive Nonreactive [facility] Comment:HIV-1 p24 Ag and/or HIV-1/HIV-2 Ab not detected.A test result that is nonreactive does not exclude thepossibility of exposure to or infection with HIV-1 and/orHIV-2. Nonreactive results in this assay for individualswith prior exposure to HIV-1 and/or HIV-2 may be due toantigen and antibody levels that are below the limit ofdetection of this assay.The [facility] HIV Ag/Ab Combo assay result andsupplemental assay results should be interpreted inconjunction with the patient's clinical presentation,history and other laboratory results. If the results areinconsistent with clinical evidence, additional testing issuggested to confirm the result. Blood Venous blood specimen / Unknown 04/11/2024 9:06 AM EST 04/11/2024 11:03 AM EST us Donna Quezada DO LAB BLOOD ORDERABLES Final R esult [facility] [address] [place] [phone] * (ABNORMAL) Lipid Panel, Standard (04/11/2024 9:06 AM EST) Triglycerides 135 <150 mg/dL [facility] Comment:Desirable Triglyceri de: less than 150 mg/dLBorderline High Triglyceride 150-199 mg/dLHigh Triglyceride: 200-499 mg/dLVery High Triglyceride: greater than or equal to 5OO mg/dL Cholesterol 174 <200 mg/dL [facility] Comment:Desirable Cholestero l: less than 200 mg/dLBorderline High Cholesterol: 200-239 mg/dLHigh Cholesterol: greater than 239 mg/dL LDL Cholesterol Calculated 111(H) <100 mg/dL [facility] Comment:Desirable LDL: less than 100 mg/dLNear Optimal/Above Optimal LDL: 110- 129 mg/dLBorderline High LDL: 130-159 mg/dLHigh LDL: 160-189 mg/dLVery High LDL: greater than or equal to 190 mg/dL HDL Cholesterol 36(L) >40 mg/dL [facility] Comment:Desirable HDL: great er than 40 mg/dL Note: This HDL assay may give artificially low results in patients with liver disease. Blood Venous blood specimen / Unknown 04/11/2024 9:06 AM EST 04/11/2024 11:03 AM EST us Donna Quezada DO LAB BLOOD ORDERABLES Final R esult [facility] [address] [place] [phone] * Hepatitis C Antibody with Reflex to HCV, RNA, Quantitative, Real-Time PCR (06/08/2022 12:26 PM EST) Hepatitis C Antibody NON-REACT PURA NON-REACT PURA [facility] [place] Glocalt Index 0.06 <1.00 [facility] [place] [facility] Comment: HCV antibody was non-reactive. There is no laboratory evidence of HCV infection. In most cases, no further action is required. However, if recent HCV exposure is suspected, a test for HCV RNA (test code 48201) is suggested. For additional information please refer to http://Rowl.kooaba/faq/RHP12g2 (This link is being provided for informational/ educational purposes only.) Blood Venous blood specimen / Unknown 06/08/2022 12:26 PM EST 06/08/2022 12:26 PM EST Narrative [facility] - 06/09/2022 8:52 PM EST FASTING:YES FASTING: YES Lillie Pimentel Shon [employer] [facility] LAB BLOOD ORDERABLES Final Result [facility] [address] [place] [address], [facility], [place] [address] [facility] [address] [place] [address], (Nl2) [place] [address] * THINPREP TIS PAP AND HPV mRNA E6/E7 WITH REFLEX TO HPV 16,18/45 (10/31/2021 11:10 AM EDT) Clinical Information: None given [facility] COMMENT SEE COMMENT [facility] [...] has been evaluated with computer assisted technology. [facility] Cytotechnologis t: SEE COMMENT [facility] Comment: SXA, CT(ASCP) CT screening location: [facility] [address] [address] HPV nRNA E6/E7 Not Detected Not Detected [facility] Comment: Methodology: Crew Caller-Mediated Amplification This assay detects E6/E7 viral messenger RNA (mRNA) from 14 high-risk HPV types (16,18,31,33,35,39,45,51,52,56,58,59,66,68). Cervical sources are required for HPV testing. If a vaginal source from a patient who has had a total hysterectomy with removal of cervix was submitted, please contact the testing laboratory for alternative testing options. For additional information, please refer to http://education.kooaba/faq/DGN467r4 (This link if provided for information/ educational purposes only.) Interpretation/ Result: Negative for intraepithelial lesion or malignancy. [facility] LMP: AMENORRHEIA, IUD [facility] Prev. BX: NONE GIVEN [facility] Prev. PAP: , NIL/NEG [facility] SOURCE: None given [facility] Statement Of Adequacy: SEE COMMENT [facility] Comment: Satisfactory for evaluation. Endocervical/transformation zone component present. 10/31/2021 11:1 0 AM EDT Ericka Flores CNM LAB PATHOLOGY ORDERABLES Final Result Performing Organization Address City/State/[facility] Co de Phone Number [facility] [address] * 3D DIGITAL LAVONNE SCR MAMMO [...] Most Recently Relevant to Health Maintenance Insurance [facility] C3 HSN PARTIAL DENTAL-[facility] MEDICAID STAND ADULT DENTAL - HSN PARTIAL (MEDICAID) Care Teams Associate Professor Of Biblical Studies Relationship Specialty Start Date End Date Raissa Mcdonald MD [address] [place] [address] PCP - General Family Medicine 03/19/20
--- OUTSIDE RECORDS SUMMARY | 2025-02-27 08:49 | XMS_ITS | Encounter Summary ---
Author Organization [email or web address] Address [address] [place] [address] 7 [place] [address] Care Team Providers Care Wallet Assembler Name Role Phone Raissa Mcdonald MD Primary Care Provider [phone] Encounter Details Date Type Department Care Team (Latest Contact Info) Description 12/26/[address] [facility] CONVERSIONS Dental, Provider, DDS Social [...] 9:00 AM EDT Office Visit [facility] OPTOMETRY [address] [place] [address] EverettHolly meyer, OD 230 [place] [address] 07/13/2025 8:45 AM EDT Office Visit [facility] ADULT DENTAL [address] [place] [address] Yuliet, Oanh [address] [place] [address] documented as of this encounter Visit Diagnoses Not on filedocumented in this encounter Care Teams Wallet Assembler Relationship Specialty Start Date End Date Raissa Mcdonald MD [address] [place] [address] PCP - General Family Medicine 03/19/20 documented as of this encounter
--- OUTSIDE RECORDS SUMMARY | 2025-02-27 08:49 | XMS_ITS | Encounter Summary ---
Author Organization [employer] Address [address] [place] [address] 7 [place] [address] Care Team Providers Care Engraver Hand Soft Metals Name Role Phone Raissa Mcdonald MD Primary Care Provider [phone] Reason for Visit * Reason Onset Date Comments Nurse Triage 08/18/2024 Encounter Details Date Type Department Care Team ([facility] st Contact Info) Description 08/18/2024 Telephone [facility] MEDICINE [address] [place], [place] [phone] Raissa Mcdonald MD [address] [place], [place] [phone] Nurse Triage Social History Tobacco Use Types [...] the past 12 months, has t he [place], oil or water [employer] threatened to shut off services in your [...] 08/18/2024 11:43 AM EDT Triage call [place] [facility] [id number] Pt reports allergy symptoms from being outside [...] Reason: Getting worse Please contact pt at [phone]. (Indian Speaker) documented in this encounter Plan of Treatment Upcoming Encounters Date Type Department Care Team (Late st Contact Info) Description 06/29/2025 9:00 AM EDT Office Visit [facility] OPTOMETRY [address] [place] [address] Holly Floyd, OD [address] [place] [address] 07/13/2025 8:45 AM EDT Office Visit [facility] ADULT DENTAL [address] [place] [address] Yuliet, Oanh [address] [place] [address] documented as of this encounter Visit Diagnoses Not on filedocumented in this encounter Additional Health Concerns Assessment Noted Time PHQ-9 Depression Total Score: 8 04/22/19 25 9:16 AM EST documented as of this encounter Care Teams Engraver Hand Soft Metals Relationship Specialty Start Date End Date Raissa Mcdonald MD [address] [place] [address] PCP - General Family Medicine 03/19/20 documented as of this encounter
--- OUTSIDE RECORDS SUMMARY | 2025-02-27 08:49 | XMS_ITS | Encounter Summary ---
Author Organization [employer] Address [address] [place] [address] 7t [place] [address] Care Team Providers Care Hob Grinder Name Role Phone Raissa Mcdonald MD Primary Care Provider [phone] Reason for Referral * Hospital - Outpatient (Routine) - Closed Specialty Diagnoses / Procedures Referred By Liss gamble Referred To Contact Diagnoses Daytime somnolence Procedures Polysomnography Raissa Mcdonald MD [address] [place] [address] Phone: tel: fax: [address] Phone: tel: fax: Referral ID Status Reason Start Date Expiration Date Visits Re quested Visits Authorized [id number] Closed 03/03/2024 03/03/2025 1 1 Encounter Details Date Type Department Care Team (Late st Contact Info) Description 03/03/2024 Orders Only [facility] MEDICINE [address] [place] [address] [phone] Raissa Mcdonald MD [address] [place] [address] Daytime somnolence (Primary Dx) Social [...] Description 06/29/2025 9:00 AM EDT Office Visit [facility] OPTOMETRY [address] [place] [address] Everett, Holly, OD [address] [place] [address] 07/13/2025 8:45 AM EDT Office Visit [facility] ADULT DENTAL [address] [place] [address] Yuliet, Oanh [address] [place] [address] Scheduled Orders Name Type Priority Associated Diagnoses Orde r Schedule Polysomnography Sleep Center Routine Daytime somnolence Expected: 03/03/2024 (Approximate), Expires: 03/03/2025 documented as of this encounter Visit Diagnoses Diagnosis Daytime somnolence- Primary documented in this encounter Care Teams Hob Grinder Relationship Specialty Start Date End Date Raissa Mcdonald MD [address] [place] [address] PCP - General Family Medicine 03/19/20 documented as of this encounter
--- OUTSIDE RECORDS SUMMARY | 2025-02-27 08:49 | XMS_ITS | Encounter Summary ---
Author Organization [employer] Address [address] [place] [address] 7t [place] [address] Care Team Providers Care Intern Architect Name Role Phone Raissa Mcdonald MD Primary Care Provider [phone] Reason for Visit * Reason Comments Med Refill Encounter Details Date Type Department Care Team ([facility] Contact Info) Description 06/23/2022 Refill [facility] MEDICINE [address] [place], [place] [phone] Raissa Mcdonald MD [address] [place], [place] [phone] Essential hypertension (Primary Dx) Social History Tobacco [...] Description 06/29/2025 9:00 AM EDT Office Visit [facility] OPTOMETRY [address] [place], [place] [phone] Holly Floyd, OD 230 [place] [address] 07/13/2025 8:45 AM EDT Office Visit [facility] ADULT DENTAL [address] [place], [place] [phone] Chuckie Horvatharis [address] [place] [address] documented as of this encounter Visit Diagnoses Diagnosis Essential hypertension- Primary Unspecified essential hypertension documented in this encounter Care Teams Intern Architect Relationship Specialty Start Date End Date Raissa Mcdonald MD [address] [place] [address] PCP - General Family Medicine 03/19/20 documented as of this encounter
--- OUTSIDE RECORDS SUMMARY | 2025-02-27 08:49 | XMS_ITS | Encounter Summary ---
Author Organization [employer] Address [address] [place] [address] 7[address] [place] [address] Care Team Providers Care Nut Feeder Name Role Phone Raissa Mcdonald MD Primary Care Provider [phone] Reason for Visit * Reason Comments Med Refill Encounter Details Date Type Department Care Team (Late st Contact Info) Description 01/03/2025 Refill [facility] [address] [place], [place] [phone] Raissa Mcdonald MD 230 [place], [place] [phone] Social History Tobacco Use Types Packs/Day Years [...] 9:00 AM EDT Office Visit [facility] [address] [place] [address] Everett, Holly, OD [address] [place] [address] 07/13/2025 8:45 AM EDT Office Visit [facility] [address] [place] [address] Yuliet, Oanh [address] [place] [address] documented as of this encounter Visit Diagnoses Not on filedocumented in this encounter Additional Health Concerns Assessment Noted Time PHQ-9 Depression Total Score: 8 04/22/19 25 9:16 AM EST documented as of this encounter Care Teams Nut Feeder Relationship Specialty Start Date End Date Raissa Mcdonald MD [address] [place] [address] PCP - General Family Medicine 03/19/20 documented as of this encounter
--- OUTSIDE RECORDS SUMMARY | 2025-02-27 08:49 | XMS_ITS | Encounter Summary ---
Author Organization [employer] Address [address] [place] [address] 7[address] [place] [address] Care Team Providers Care Wallpaper Cleaner Name Role Phone Raissa Mcdonald MD Primary Care Provider [phone] Reason for Visit * Reason Comments Med Refill Encounter Details Date Type Department Care Team (Late st Contact Info) Description 06/10/2024 Refill [facility] [address] [place], [place] [phone] Raissa Mcdonald MD [address] [place], [place] [phone] Social History Tobacco Use Types Packs/Day Years [...] Description 06/29/2025 9:00 AM EDT Office Visit [facility] [address] [place] [address] Everett, Holly, OD [address] [place] [address] 07/13/2025 8:45 AM EDT Office Visit [facility] [address] [place] [address] Yuliet, Oanh [address] [place] [address] documented as of this encounter Visit Diagnoses Not on filedocumented in this encounter Additional Health Concerns Assessment Noted Time PHQ-9 Depression Total Score: 8 04/22/19 25 9:16 AM EST documented as of this encounter Care Teams Wallpaper Cleaner Relationship Specialty Start Date End Date Raissa Mcdonald MD [address] [place] [address] PCP - General Family Medicine 03/19/20 documented as of this encounter
--- OUTSIDE RECORDS SUMMARY | 2025-02-27 08:49 | XMS_ITS | Encounter Summary ---
Author Organization [employer] Address [address] [place] [address] [address] [place] [address] Care Team Providers Care Tapper Supervisor Name Role Phone Raissa Mcdonald MD Primary Care Provider [phone] Reason for Visit * Reason Comments Med Change Request Encounter Details Date Type Department Care Team (Late st Contact Info) Description 10/16/2022 Refill [facility] [address] [place], [place] [phone] Raissa Mcdonald MD [address] [place], [place] [phone] Essential hypertension Social History Tobacco Use Types [...] [facility] [address] [place] [address] EverettOmar meyern, OD 230 [place] [address] 07/13/2025 8:45 AM EDT Office Visit [facility] [address] [place] [address] Yuliet Oanh [address] [place] [address] documented as of this encounter Visit Diagnoses Diagnosis Essential hypertension Unspecified essential hypertension documented in this encounter Care Teams Tapper Supervisor Relationship Specialty Start Date End Date Raissa Mcdonald MD [address] [place] [address] PCP - General Family Medicine 03/19/20 documented as of this encounter
--- OUTSIDE RECORDS SUMMARY | 2025-02-27 08:49 | XMS_ITS | Encounter Summary ---
Author Organization [employer] Address [address] [place] [address] [address] [place] [address] Care Team Providers Care County Judge Name Role Phone Raissa Mcdonald MD Primary Care Provider [phone] Reason for Visit * Reason Comments Med Refill Encounter Details Date Type Department Care Team (Late st Contact Info) Description 02/19/2023 Refill [facility] [address] [place], [place] [phone] Raissa Mcdonald MD [address] [place], [place] [phone] Acute cough Social History Tobacco Use Types [...] Visit [facility] [address] [place] [address] Everett, Holly, OD [address] [place] [address] 07/13/2025 8:45 AM EDT Office Visit [facility] [address] [place] [address] Yuliet, Oanh [address] [place] [address] documented as of this encounter Visit Diagnoses Diagnosis Acute cough documented in this encounter Care Teams County Judge Relationship Specialty Start Date End Date Raissa Mcdonald MD [address] [place] [address] PCP - General Family Medicine 03/19/20 documented as of this encounter
--- OUTSIDE RECORDS SUMMARY | 2025-02-27 08:49 | XMS_ITS | Encounter Summary ---
Author Organization [employer] Address [address] [place] [address] 7 [place] [address] Care Team Providers Care Supervisor Abattoir Name Role Phone Raissa Mcdonald MD Primary Care Provider [phone] Encounter Details Date Type Department Care Team (Latest Contact Info) Description 10/23/2018 Abstract [facility] CONVERSION[facility] Dental, Provider, DDS Social History Tobacco [...] Description 06/29/2025 9:00 AM EDT Office Visit [facility] [address] [place] [address] EverettHolly meyer, OD [address] [place] [address] 07/13/2025 8:45 AM EDT Office Visit [facility] [address] [place] [address] Yuliet, Oanh 230 [place] [address] documented as of this encounter Visit Diagnoses Not on filedocumented in this encounter Care Teams Supervisor Abattoir Relationship Specialty Start Date End Date Raissa Mcdonald MD [address] [place] [address] PCP - General Family Medicine 03/19/20 documented as of this encounter
--- OUTSIDE RECORDS SUMMARY | 2025-02-27 08:49 | XMS_ITS | Encounter Summary ---
Author Organization [employer] Address [address] [place] [address] [address] [place] [address] Care Team Providers Care Senior Medical Director Name Role Phone Raissa Mcdonald MD Primary Care Provider [phone] Encounter Details Date Type Department Care Team (Late st Contact Info) Description 03/29/2022 Orders Only [facility] [address] [place] [address] Jessica Munoz LPN Social History Tobacco Use [...] Description 06/29/2025 9:00 AM EDT Office Visit [facility] [address] [place] [address] EverettHolly meyer, OD [address] [place] [address] 07/13/2025 8:45 AM EDT Office Visit [facility] [address] [place] [address] Yuliet, Oanh [address] [place] [address] documented as of this encounter Visit Diagnoses Not on filedocumented in this encounter Care Teams Senior Medical Director Relationship Specialty Start Date End Date Raissa Mcdonald MD [address] [place] [address] PCP - General Family Medicine 03/19/20 documented as of this encounter
--- NOTE | 2025-02-27 09:25 | HO.NEPHOV ---
Vital Signs 02/27/25 09:27 Height 5 ft 4 in Weight 248 lb BMI 42.6 BP 112/70 Blood Pressure Location Lt brachial Position Sitting Pulse 61 Pulse Source Pulse Oximeter Pulse Oximetry (%) 97 Oxygen Delivery Method Room Air Intake Visit Reasons: 3mon f/u w/labs-Conf Riverboat Captain Required: Yes Riverboat Captain Language: Commercial Housekeeper Services: Riverboat Captain Present Riverboat Captain Name: Henrique [id number] Information Interpreted: clinical only Accompanied by: Self / Same As Patient Allergies bee pollen (bee stings) Allergy (Unknown, Verified 02/27/25 09:26) Unknown HPI Comments Details: Bangladeshi interpretor Henrique [id number] 44 years old lady with PMH of hypertension, vitamin-D deficiency, migraine here for follow-up of hypertension and hypokalemia Hypertension: since past 8 years, currently on amlodipine, losartan, propranolol complains of dryness of mouth possibly due to oxybutinin or spironolactone PFSH Medical History (Updated 09/19/24 @ 11:07 by Mikael Sheppard MD) Hypokalemia Daytime somnolence Cubital tunnel syndrome on left Chronic midline thoracic back pain Breast pain Insulin resistance Migraine without aura and without status migrainosus, not intractable Urinary incontinence Vitamin D deficiency Dental calculus Chronic migraine without aura without status migrainosus, not intractable Stress incontinence Hypertension Surgical History History of cholecystectomy H/O section Social History Alcohol intake: never Patient Tobacco Use Status: Never used Tobacco Review of Systems Narrative Const : no body aches, no chills Eyes: no blurry vision and no change in vision ENT: no bleeding gums and no change in voice, no dizziness Card: no chest pain, no shortness of breath, no orthopnea, no PND Resp: no cough, no excessive phlegm production, no SOB GI: no abdominal pain and no nausea, no vomiting : no hematuria, no urinary frequency and no difficulty voiding Musc: no abnormal gait, no bone pain Neuro: no abnormal movements, no dizziness Psych: no behavioral changes and no change in appetite Endo: no change in body appearance, no cold intolerance Physical Exam Vital Signs: Last Vital Signs Pulse 61 02/27/25 09:27 BP 112/70 02/27/25 09:27 Pulse Ox 97 02/27/25 09:27 Oxygen Delivery Method Room Air 02/27/25 09:27 BMI result Body Mass Index 42.6 General: comfortable, pleasant Nutritional Appearance: well nourished and overweight Eyes: normal position, no icterus Neck: No lymphadenopathy, no thyromegaly Resp: bilateral air entry equal, bilateral crackles heard Cardio: normal S1, S2 heard, no murmur heard, no edema GI: soft, nontender, no guarding, no hepatosplenomegaly : bladder normal to inspection, bladder normal to palpation, no renal angle tenderness Skin: no rashes or lesions noted and elasticity normal Neuro: oriented to person, oriented to place, oriented to time and moves all extremities Results Reviewed Nephrology Results: Sodium, (135-145) 139 mmol/L 02/23/25 Potassium, (3.3-5.1) 3.4 mmol/L 02/23/25 Chloride, (96-108) 110 mmol/L H 02/23/25 Carbon Dioxide, (22-29) 20 mmol/L L 02/23/25 BUN, (9-16) 13 mg/dL 02/23/25 Creatinine, (0.5-1.4) 0.66 mg/dL 02/23/25 Calcium, (8.4-10.2) 8.6 mg/dL 02/23/25 Urine Creatinine 277.76 mg/dL 10/01/24 Assessment & Plan Assessment & Plan (1) Hypertension: Code(s): I10 - Essential (primary) hypertension Category: Medical (2) Hypokalemia: Code(s): E87.6 - Hypokalemia Category: Medical Plan Hypokalemia mild: - most recent potassium: 3.4, Mg 2.1 - low plasma renin but high plasma aldosterone 63.6 (normal < 28.9). 24 hr aldosterone levels normal 5.3. Cortisol normal. Although her spot plasma aldosterone levels are high her 24 hr urine aldosterone levels were normal as well as 24 hr urine potassium levels. I offered her further testing including saline infusion test and oral sodium/salt loading test but she refused to any further tests. - continue spironolactone 50mg daily, losartan to 50mg . - mother has history high blood pressure but no family history of hypokalemia. - symptoms: no weakness, cramps once a month, has constipation takes laxative, no vomiting, diarrhea - spot urine potassium/creatinine ratio was high, but 24 hour urine potassium, magnesium and calcium levels were normal - talked to pharmacist, who said she is not on any potassium supplements. Hypertension: - continue spironolactone 50mg and losartan 50mg. - continue propranolol 80mg BID for migrane. has some swelling in the legs due to obesity advised her to wear compression stockings will follow her back in 4 months with repeat labs. Orders: Orders Microalbumin, Random (w Creat) 4 Months E87.6 - Hypokalemia, I10 - Essential (primary) hypertension Protein Creatinine Ratio, Ur 4 Months E87.6 - Hypokalemia, I10 - Essential (primary) hypertension Basic Metabolic Panel 4 Months E87.6 - Hypokalemia, I10 - Essential (primary) hypertension Coding Level of Care Code Est Pt Level 4 (59530) Diagnoses Hypertension I10 Hypokalemia E87.6
[2025-02-27 09:27] VITALS: BP 112/70; PULSE 61; O2SAT 97; BMI 42.6
== END 2025-02-27 09:45 | disposition home or self-care (01) ==
LOC: HO.HKA 08:45
PROVIDERS: PCP General Practice; Visit Provider Internal Medicine Critical Care Medicine
DX: I10 Essential (primary) hypertension (principal); E87.6 Hypokalemia
CPT/HCPCS: 99214

== ENCOUNTER → 2025-02-27 08:45 | Outpatient (BNVA) | payer MEDICAID, SELFPAY | PROVIDERS: PCP General Practice; Visit Provider Internal Medicine Critical Care Medicine | DX: I10 Essential (primary) hypertension (principal); E87.6 Hypokalemia | CPT/HCPCS: 99212 ==